=== PATIENT | male | born 1970 | race Caucasian/White ===

== ENCOUNTER 2018-05-06 11:38 | Emergency (ER) | payer MEDICAID, SELFPAY ==
[2018-05-06 11:42] VITALS: BP 126/80; PULSE 80; RESP 16; TEMP 36.7; O2SAT 96
--- NOTE | 2018-05-06 12:18 | W.ED.GENAD ---
Discharge Plan Disposition Patient Disposition: HOME Condition: Stable Discharge Details Chief Complaint: Abd Prob Clinical Impression: Vomiting and diarrhea Primary Care Provider: Young Caban ED Provider: Claudia Taylor Home Meds and New Rx's Prescriptions: Continue sildenafil (antihypertensive) 20 mg tablet 20 mg PO DAILY MDD 5 Qty: 20 RF: 12 spacer 1 unit PO PRN PRNRF: 0 C-PAP RF: 0 albuterol sulfate [ProAir HFA] 8.5 GM HFA aerosol inhaler 2 puff Inhalation Q4H PRN Qty: 1 RF: 5 amlodipine 5 MG tablet 5 mg PO DAILY Qty: 90 RF: 4 PROVENTIL HFA 18 GM HFA.AER.AD 2 puff Inhalation DAILY Qty: 1 RF: 3 metoprolol succinate 50 mg tablet extended release 24 hr 75 mg PO DAILY Qty: 135 RF: 3 dextroamphetamine-amphetamine [Adderall XR] 10 mg capsule,extended release 24hr 10 mg PO QAM Qty: 30 RF: 0 dextroamphetamine-amphetamine [Adderall XR] 30 mg capsule,extended release 24hr 30 mg PO QAM Qty: 30 RF: 0 acetaminophen [Tylenol] 325 MG tablet 650 mg PO Q4H PRN PRNRF: 0 aspirin [Aspir-81] 81 MG tablet,delayed release (DR/EC) 325 mg PO DAILY Qty: 0 RF: 0 No Action losartan 100 mg tablet 100 mg PO DAILY Qty: 90 RF: 3 Discharge Instructions Instructions: Acute Nausea and Vomiting (ED), Acute Diarrhea (ED) Additional Instructions: Please return immediately to the emergency department if you develop any new or worsening symptoms or if you become otherwise concerned. It is extremely important that you make an appointment to be seen by your primary care doctor within the next 1-2 weeks and follow-up this visit. Referrals: Young Caban [Primary Care Provider] - Discharge Data Discharge Date/Time-TO BE ENTERED AT DEPARTURE: 05/06/18 15:09 Medical Decision Making Venu Zapata is a 47 y/o man with h/o HTN, asthma who presented to the emergency department with diarrhea since yesterday, vomiting x2 yesterday, lower abd pain with BMs without current pain. Symptoms improving. Pt very well-appearing on exam with benign abd. Concern for gastroenteritis. Doubt pancreatitis, biliary dz, appy, diverticulitis as no current pain, abd NTTP. Exam/hx not c/w testicular etiology, acute aortic pathology, sepsis, ACS. Plan for screening labs, UA, IVF hydration, PO challenge. Will monitor and reassess. Labs non-diagnostic. Pt passed PO challenge without issue. Imaging not indicated at this time, Pt continues to be pain free. Lengthy discussion with Pt re: RTED precautions and importance of outpt f/u with PCP. He is amenable to the plan. Medical Records Medical records reviewed: Yes I reviewed the patient's medical records. Lab Data Lab results reviewed: Yes I reviewed the patient's lab results. Laboratory Tests Range/Units 05/06/18 05/06/18 05/06/18 12:30 12:30 12:55 WBC (4.4-10.8) k/cumm 7.71 RBC (4.50-6.00) m/cumm 5.26 Hgb (13.5-17.5) g/dL 15.4 Hct (40.0-50.0) % 44.9 MCV (80-95) fL 85.4 MCH (27.0-33.0) pg 29.3 MCHC (32.0-36.0) g/dL 34.3 RDW (11.8-14.1) % 13.8 Plt Count (130-400) x1000/uL 262 MPV (8.0-11.0) fL 8.8 Immature Gran % 0.1 Neutrophils % 69.2 Lymphocytes % 16.3 Monocytes % 11.2 Eosinophils % 3.1 Basophils % 0.1 Absolute Neutrophils (1.2-6.7) k/cumm 5.33 Absolute Lymphocytes (1.2-3.4) k/cumm 1.26 Absolute Monocytes (0.11-0.7) k/cumm 0.86 H Absolute Eosinophils (0.0-0.7) k/cumm 0.24 Absolute Basophils (0.0-0.2) k/cumm 0.01 Sodium (136-145) mmol/L 138 Potassium (3.5-5.1) mmol/L 3.8 Chloride (98-107) mmol/L 104 Carbon Dioxide (21.0-32.0) mmol/L 26.2 Anion Gap (3-11) mmol/L 7.8 BUN (7-18) mg/dL 17 Creatinine (0.70-1.30) mg/dL 1.04 Estimated GFR/1.73 m2 (mL/min/1.73m2) >= 60.00 Glucose (70-100) mg/dL 126 H Calcium (8.5-10.1) mg/dL 8.5 Total Bilirubin (0.2-1.0) mg/dL 0.5 AST (15-37) U/L 14 L ALT (12-78) U/L 27 Alkaline Phosphatase (46-116) U/L 82 Total Protein (6.4-8.2) g/dL 7.6 Albumin (3.4-5.0) g/dL 3.7 Lipase (73-393) U/L 78 Urine Color (Yellow) Yellow Urine Clarity Clear Urine pH (5-8) 5.5 Ur Specific [place] (1.005-1.025) >= 1.030 H Urine Protein (Negative) mg/dL 100 H Urine Ketones (Negative) mg/dL Negative Urine Blood (Negative) Negative Urine Nitrite (Negative) Negative Urine Bilirubin (Negative) Negative Urine Urobilinogen (Up TO 0.2) EU/dL 0.2 Ur Leukocyte Esterase (Negative) Negative Urine RBC (0-2) Negative Urine WBC (0-5) HPF 0-2 Ur Epithelial Cells (Negative) HPF Negative Urine Crystals (Negative) HPF Many amorphous Urine Bacteria (Negative) HPF Negative Urine Casts (Negative) LPF Negative Urine Mucus (Negative) Moderate Ur Culture Indicated? No Urine Glucose (Negative) mg/dL Negative ECG Data Attestation: I personally reviewed and interpreted this ECG (s) as follows: Interpretation: EKG shows NSR at 73 with nl axis, PRWP, no STEMI, non-diagnostic EKG HPI General Mode of arrival: ambulatory. Date/Time Provider Initiated Documentation: 05/06/18 12:18. Limitations to Documentation: no limitations. Information obtained by: patient, family, RN notes reviewed and old records reviewed. HPI Narrative: Venu Zapata is a 47 y/o man with h/o asthma, HTN presenting to the emergency department with abdominal pain, vomiting and diarrhea since yesterday. Pt reports that yesterday morning he develop diarrhea, and then began having lower abdominal pain before BMs that resolves after BM. He reports he currently has no pain. He also developed vomiting yesterday x2. No vomiting today. Pt feeling somewhat improved from yesterday at this time. Denies fever, other pain, SOB, cough, rash, weakness, n/t. No recent illnesses. No recent travel. Previously in his usual state of health. Had been eating and drinking normally. Diarrhea is loose but not watery. No recent abx. Related Data Home Medications Medication Instructions Recorded Confirmed Spacer 1 unit PO PRN PRN 05/02/14 05/04/18 C-Pap 02/04/17 05/04/18 acetaminophen [Tylenol] 650 mg PO Q4H PRN PRN tab 02/23/17 05/06/18 aspirin [Aspir-81] 325 mg PO DAILY #0 tab-cap 02/23/17 05/06/18 albuterol sulfate [ProAir HFA] 2 puff INHALATION Q4H PRN #1 05/07/17 05/06/18 inhaler amlodipine 5 mg PO DAILY #90 tab-cap 10/10/17 05/06/18 metoprolol succinate ER 50 mg 75 mg PO DAILY #135 tab 04/08/18 05/06/18 tablet,extended release 24 hr dextroamphetamine-amphetamine ER 10 mg PO QAM #30 cap 05/04/18 05/06/18 10 mg 24hr capsule,extend release dextroamphetamine-amphetamine ER 30 mg PO QAM #30 cap 05/04/18 05/06/18 30 mg 24hr capsule,extend release sildenafil (antihypertensive) 20 20 mg PO DAILY #20 tab-cap MDD 5 05/04/18 05/06/18 mg tablet losartan 100 mg tablet 100 mg PO DAILY #90 tab-cap 05/15/18 Previous Rx's Medication Instructions Recorded acetaminophen [Tylenol] 650 mg PO Q4H PRN PRN tab 02/23/17 aspirin [Aspir-81] 325 mg PO DAILY #0 tab-cap 02/23/17 albuterol sulfate [ProAir HFA] 2 puff INHALATION Q4H PRN #1 05/07/17 inhaler amlodipine 5 mg PO DAILY #90 tab-cap 10/10/17 metoprolol succinate ER 50 mg 75 mg PO DAILY #135 tab 04/08/18 tablet,extended release 24 hr dextroamphetamine-amphetamine ER 10 mg PO QAM #30 cap 05/04/18 10 mg 24hr capsule,extend release dextroamphetamine-amphetamine ER 30 mg PO QAM #30 cap 05/04/18 30 mg 24hr capsule,extend release sildenafil (antihypertensive) 20 20 mg PO DAILY #20 tab-cap MDD 5 05/04/18 mg tablet losartan 100 mg tablet 100 mg PO DAILY #90 tab-cap 05/15/18 Allergies Allergy/AdvReac Type Severity Reaction Status Date / Time lisinopril AdvReac Unknown cough Unverified 05/06/18 11:47 General Stated Complaint: Abd Prob CATHERINE: 3 Review of Systems Review of Systems Constitutional: denies fevers Eyes: denies eye pain ENT: denies facial pain, dental pain, sore throat Cardiovascular: denies chest pain, edema Respiratory: denies SOB, cough GI: reports abdominal pain, vomiting, diarrhea : denies flank pain MSK: denies back pain, neck pain, arthralgias, myalgias Skin: denies rash Neuro: denies headaches, lightheadedness, weakness PFSH Family History Mother Diabetes Personal history of malignant neoplasm Brother No problems noted. Step father Hyperlipidemia Social History Smoking/Tobacco Use Status: Former Tobacco Use Surgical History Nasal septoplasty Exam Narrative Exam Narrative: Constitutional: well and [id number], pleasant, conversing normally HENT: head atraumatic, normocephalic normal inspection, mucous membranes moist Eyes: conjunctiva normal, sclera normal, pupils 3mm b/l Neck: no stridor, normal ROM, trachea midline Chest: normal inspection Resp: normal work of breathing, LCTAB Cardio: normal rate, normal rhythm, no murmur appreciated GI: abdomen soft, non-tender, non-distended, no McBPt TTP, neg murphys Back: normal inspection, no rash Skin: warm, dry, normal color, no rash Neuro: alert, not altered, grossly non-focal, normal tone Ext: no edema Psych: normal mood, normal affect, normal behavior Course Vital Signs Temperature 36.7 C 05/06/18 11:42 Pulse 80 05/06/18 11:42 Respiratory Rate 16 05/06/18 11:42 Blood Pressure 126/80 05/06/18 11:42 Pulse Oximetry 96 05/06/18 11:42 Temperature 36.7 C 05/06/18 11:42 Temperature Source Skin 05/06/18 11:42 Pulse 80 05/06/18 11:42 Respiratory Rate 16 05/06/18 11:42 Respiratory Effort 05/06/18 11:56 Blood Pressure 126/80 05/06/18 11:42 Blood Pressure Position Sitting 05/06/18 11:42 Pulse Oximetry 96 05/06/18 11:42 Oxygen Delivery Method Room Air 05/06/18 11:42 Oxygen Flow Rate 0 05/06/18 11:42 Pain Level 10 05/06/18 11:42
[2018-05-06 12:49] LABS: Abs Immature Grans 0.01 k/cumm (0.0-0.09); Absolute Basophil Count 0.01 k/cumm (0.0-0.2); Absolute Eosinophil Count 0.24 k/cumm (0.0-0.7); Absolute Lymphocyte Count 1.26 k/cumm (1.2-3.4); Absolute Monocyte Count 0.86 k/cumm (0.11-0.7); Absolute Neutrophil Count 5.33 k/cumm (1.2-6.7); Basophils % 0.1; Eosinophils % 3.1; HCT 44.9 % (40.0-50.0); HGB 15.4 g/dL (13.5-17.5); Immature Grans % 0.1; Lymphocytes % 16.3; Mean Corp. HGB Concentration 34.3 g/dL (32.0-36.0); Mean Corpuscular Hemoglobin 29.3 pg (27.0-33.0); Mean Corpuscular Volume 85.4 fL (80-95); Mean Platelet Volume 8.8 fL (8.0-11.0); Monocytes % 11.2; Neutrophils % 69.2; Platelet Count 262 x1000/uL (130-400); RBC 5.26 m/cumm (4.50-6.00); RBC Distribution Width 13.8 % (11.8-14.1); White Blood Cell Count 7.71 k/cumm (4.4-10.8)
[2018-05-06] MEDS: Normal Saline 1,000 ML 1000 ML IV (12:49)
[2018-05-06 13:07] LABS: Bilirubin Negative (Negative); Blood Negative (Negative); Clarity Clear; Glucose Negative (Negative); Ketones Negative (Negative); Leukocyte Esterase Negative (Negative); Nitrite Negative (Negative); Specific Gravity >= 1.030 (1.005-1.025); Urobilinogen 0.2 EU/dL (Up TO 0.2); pH 5.5 (5-8)
[2018-05-06 13:08] LABS: ALT 27 U/L (12-78); AST 14 U/L (15-37); Albumin 3.7 g/dL (3.4-5.0); Alkaline Phosphatase 82 U/L (46-116); Anion Gap 7.8 mmol/L (3-11); BUN 17 mg/dL (7-18); Bilirubin, Total 0.5 mg/dL (0.2-1.0); CO2 26.2 mmol/L (21.0-32.0); CREATININE 1.04 mg/dL (0.70-1.30); Calcium 8.5 mg/dL (8.5-10.1); Chloride 104 mmol/L (98-107); Glucose 126 mg/dL (70-100); Lipase 78 U/L (73-393); Potassium 3.8 mmol/L (3.5-5.1); Sodium 138 mmol/L (136-145); Total Protein 7.6 g/dL (6.4-8.2)
[2018-05-06 13:18] LABS: WBC 0-2 HPF (0-5)
[2018-05-06 13:19] LABS: Bacteria Negative HPF (Negative); C & S Indicated? No; Casts Negative LPF (Negative); Crystals Many Amorphous HPF (Negative); Epithelial Cells Negative HPF (Negative); Mucus Moderate (Negative); RBC Negative (0-2)
--- NOTE | 2018-05-19 13:26 | ED.GENADUL_ITS ---
Discharge Plan Disposition Patient Disposition: HOME Condition: Stable Discharge Details Chief Complaint: Abd Prob Clinical Impression: Vomiting and diarrhea Primary Care Provider: Young Caban ED Provider: Claudia Taylor Home Meds and New Rx's Prescriptions: Continue sildenafil (antihypertensive) 20 mg tablet 20 mg PO DAILY MDD 5 Qty: 20 RF: 12 spacer 1 unit PO PRN PRNRF: 0 C-PAP RF: 0 albuterol sulfate [ProAir HFA] 8.5 GM HFA aerosol inhaler 2 puff Inhalation Q4H PRN Qty: 1 RF: 5 amlodipine 5 MG tablet 5 mg PO DAILY Qty: 90 RF: 4 PROVENTIL HFA 18 GM HFA.AER.AD 2 puff Inhalation DAILY Qty: 1 RF: 3 metoprolol succinate 50 mg tablet extended release 24 hr 75 mg PO DAILY Qty: 135 RF: 3 dextroamphetamine-amphetamine [Adderall XR] 10 mg capsule,extended release 24hr 10 mg PO QAM Qty: 30 RF: 0 dextroamphetamine-amphetamine [Adderall XR] 30 mg capsule,extended release 24hr 30 mg PO QAM Qty: 30 RF: 0 acetaminophen [Tylenol] 325 MG tablet 650 mg PO Q4H PRN PRNRF: 0 aspirin [Aspir-81] 81 MG tablet,delayed release (DR/EC) 325 mg PO DAILY Qty: 0 RF: 0 No Action losartan 100 mg tablet 100 mg PO DAILY Qty: 90 RF: 3 Discharge Instructions Instructions: Acute Nausea and Vomiting (ED), Acute Diarrhea (ED) Additional Instructions: Please return immediately to the emergency department if you develop any new or worsening symptoms or if you become otherwise concerned. It is extremely important that you make an appointment to be seen by your primary care doctor within the next 1-2 weeks and follow-up this visit. Referrals: Young Caban [Primary Care Provider] - Discharge Data Discharge Date/Time-TO BE ENTERED AT DEPARTURE: 05/06/18 15:09 Medical Decision Making Venu Zapata is a 47 y/o man with h/o HTN, asthma who presented to the emergency department with diarrhea since yesterday, vomiting x2 yesterday, lower abd pain with BMs without current pain. Symptoms improving. Pt very well- appearing on exam with benign abd. Concern for gastroenteritis. Doubt pancreatitis, biliary dz, appy, diverticulitis as no current pain, abd NTTP. Exam/hx not c/w testicular etiology, acute aortic pathology, sepsis, ACS. Plan for screening labs, UA, IVF hydration, PO challenge. Will monitor and reassess. Labs non-diagnostic. Pt passed PO challenge without issue. Imaging not indicated at this time, Pt continues to be pain free. Lengthy discussion with Pt re: RTED precautions and importance of outpt f/u with PCP. He is amenable to the plan. Medical Records Medical records reviewed: Yes I reviewed the patient's medical records. Lab Data Lab results reviewed: Yes I reviewed the patient's lab results. Laboratory Tests Range/Units 05/06/18 05/06/18 05/06/18 12:30 12:30 12:55 WBC (4.4-10.8) k/cumm 7.71 RBC (4.50-6.00) m/cumm 5.26 Hgb (13.5-17.5) g/dL 15.4 Hct (40.0-50.0) % 44.9 MCV (80-95) fL 85.4 MCH (27.0-33.0) pg 29.3 MCHC (32.0-36.0) g/dL 34.3 RDW (11.8-14.1) % 13.8 Plt Count (130-400) x1000/uL 262 MPV (8.0-11.0) fL 8.8 Immature Gran % 0.1 Neutrophils % 69.2 Lymphocytes % 16.3 Monocytes % 11.2 Eosinophils % 3.1 Basophils % 0.1 Absolute Neutrophils (1.2-6.7) k/cumm 5.33 Absolute Lymphocytes (1.2-3.4) k/cumm 1.26 Absolute Monocytes (0.11-0.7) k/cumm 0.86 H Absolute Eosinophils (0.0-0.7) k/cumm 0.24 Absolute Basophils (0.0-0.2) k/cumm 0.01 Sodium (136-145) mmol/L 138 Potassium (3.5-5.1) mmol/L 3.8 Chloride (98-107) mmol/L 104 Carbon Dioxide (21.0-32.0) mmol/L 26.2 Anion Gap (3-11) mmol/L 7.8 BUN (7-18) mg/dL 17 Creatinine (0.70-1.30) mg/dL 1.04 Estimated GFR/1.73 m2 (mL/min/1.73m2) >= 60.00 Glucose (70-100) mg/dL 126 H Calcium (8.5-10.1) mg/dL 8.5 Total Bilirubin (0.2-1.0) mg/dL 0.5 AST (15-37) U/L 14 L ALT (12-78) U/L 27 Alkaline Phosphatase (46-116) U/L 82 Total Protein (6.4-8.2) g/dL 7.6 Albumin (3.4-5.0) g/dL 3.7 Lipase (73-393) U/L 78 Urine Color (Yellow) Yellow Urine Clarity Clear Urine pH (5-8) 5.5 Ur Specific [place] (1.005-1.025) >= 1.030 H Urine Protein (Negative) mg/dL 100 H Urine Ketones (Negative) mg/dL Negative Urine Blood (Negative) Negative Urine Nitrite (Negative) Negative Urine Bilirubin (Negative) Negative Urine Urobilinogen (Up TO 0.2) EU/dL 0.2 Ur Leukocyte Esterase (Negative) Negative Urine RBC (0-2) Negative Urine WBC (0-5) HPF 0-2 Ur Epithelial Cells (Negative) HPF Negative Urine Crystals (Negative) HPF Many amorphous Urine Bacteria (Negative) HPF Negative Urine Casts (Negative) LPF Negative Urine Mucus (Negative) Moderate Ur Culture Indicated? No Urine Glucose (Negative) mg/dL Negative ECG Data Attestation: I personally reviewed and interpreted this ECG (s) as follows: Interpretation: EKG shows NSR at 73 with nl axis, PRWP, no STEMI, non- diagnostic EKG HPI General Mode of arrival: ambulatory . Date/Time Provider Initiated Documentation: 05/06/18 12:18 . Limitations to Documentation: no limitations . Information obtained by: patient, family, RN notes reviewed and old records reviewed . HPI Narrative: Venu Zapata is a 47 y/o man with h/o asthma, HTN presenting to the emergency department with abdominal pain, vomiting and diarrhea since yesterday. Pt reports that yesterday morning he develop diarrhea, and then began having lower abdominal pain before BMs that resolves after BM. He reports he currently has no pain. He also developed vomiting yesterday x2. No vomiting today. Pt feeling somewhat improved from yesterday at this time. Denies fever, other pain, SOB, cough, rash, weakness, n/t. No recent illnesses. No recent travel. Previously in his usual state of health. Had been eating and drinking normally. Diarrhea is loose but not watery. No recent abx. Related Data Home Medications Medication Instructions Recorded Confirmed Spacer 1 unit PO PRN PRN 05/02/14 05/04/18 C-Pap 02/04/17 05/04/18 acetaminophen [Tylenol] 650 mg PO Q4H PRN PRN tab 02/23/17 05/06/18 aspirin [Aspir-81] 325 mg PO DAILY #0 tab-cap 02/23/17 05/06/18 albuterol sulfate [ProAir HFA] 2 puff INHALATION Q4H PRN #1 05/07/17 05/06/18 inhaler amlodipine 5 mg PO DAILY #90 tab-cap 10/10/17 05/06/18 metoprolol succinate ER 50 mg 75 mg PO DAILY #135 tab 04/08/18 05/06/18 tablet,extended release 24 hr dextroamphetamine-amphetamine ER 10 mg PO QAM #30 cap 05/04/18 05/06/18 10 mg 24hr capsule,extend release dextroamphetamine-amphetamine ER 30 mg PO QAM #30 cap 05/04/18 05/06/18 30 mg 24hr capsule,extend release sildenafil (antihypertensive) 20 20 mg PO DAILY #20 tab-cap MDD 5 05/04/1805/06 mg tablet losartan 100 mg tablet 100 mg PO DAILY #90 tab-cap 05/15/18 Previous Rx's Medication Instructions Recorded acetaminophen [Tylenol] 650 mg PO Q4H PRN PRN tab 02/23/17 aspirin [Aspir-81] 325 mg PO DAILY #0 tab-cap 02/23/17 albuterol sulfate [ProAir HFA] 2 puff INHALATION Q4H PRN #1 05/07/17 inhaler amlodipine 5 mg PO DAILY #90 tab-cap 10/10/17 metoprolol succinate ER 50 mg 75 mg PO DAILY #135 tab 04/08/18 tablet,extended release 24 hr dextroamphetamine-amphetamine ER 10 mg PO QAM #30 cap 05/04/18 10 mg 24hr capsule,extend release dextroamphetamine-amphetamine ER 30 mg PO QAM #30 cap 05/04/18 30 mg 24hr capsule,extend release sildenafil (antihypertensive) 20 20 mg PO DAILY #20 tab-cap MDD 5 05/04/18 mg tablet losartan 100 mg tablet 100 mg PO DAILY #90 tab-cap 05/15/18 Allergies Allergy/AdvReac Type Severity Reaction Status Date / Time lisinopril AdvReac Unknown cough Unverified 05/06/18 11:47 General Stated Complaint: Abd Prob CATHERINE: 3 Review of Systems Review of Systems Constitutional: denies fevers Eyes: denies eye pain ENT: denies facial pain, dental pain, sore throat Cardiovascular: denies chest pain, edema Respiratory: denies SOB, cough GI: reports abdominal pain, vomiting, diarrhea : denies flank pain MSK: denies back pain, neck pain, arthralgias, myalgias Skin: denies rash Neuro: denies headaches, lightheadedness, weakness PFSH Family History Mother Diabetes Personal history of malignant neoplasm Brother No problems noted. Step father Hyperlipidemia Social History Smoking/Tobacco Use Status: Former Tobacco Use Surgical History Nasal septoplasty Exam Narrative Exam Narrative: Constitutional: well and [id number], pleasant, conversing normally HENT: head atraumatic, normocephalic normal inspection, mucous membranes moist Eyes: conjunctiva normal, sclera normal, pupils 3mm b/l Neck: no stridor, normal ROM, trachea midline Chest: normal inspection Resp: normal work of breathing, LCTAB Cardio: normal rate, normal rhythm, no murmur appreciated GI: abdomen soft, non-tender, non-distended, no McBPt TTP, neg murphys Back: normal inspection, no rash Skin: warm, dry, normal color, no rash Neuro: alert, not altered, grossly non-focal, normal tone Ext: no edema Psych: normal mood, normal affect, normal behavior Course Vital Signs Temperature 36.7 C 05/06/18 11:42 Pulse 80 05/06/18 11:42 Respiratory Rate 16 05/06/18 11:42 Blood Pressure 126/80 05/06/18 11:42 Pulse Oximetry 96 05/06/18 11:42 Temperature 36.7 C 05/06/18 11:42 Temperature Source Skin 05/06/18 11:42 Pulse 80 05/06/18 11:42 Respiratory Rate 16 05/06/18 11:42 Respiratory Effort 05/06/18 11:56 Blood Pressure 126/80 05/06/18 11:42 Blood Pressure Position Sitting 05/06/18 11:42 Pulse Oximetry 96 05/06/18 11:42 Oxygen Delivery Method Room Air 05/06/18 11:42 Oxygen Flow Rate 0 05/06/18 11:42 Pain Level 10 05/06/18 11:42
== END 2018-05-06 15:09 | disposition home or self-care (01) ==
PROVIDERS: Emergency Provider Student in an Organized Health Care Education/Training Program; PCP Family Medicine
DX: R11.2 Nausea with vomiting, unspecified (principal); R19.7 Diarrhea, unspecified; I10 Essential (primary) hypertension
CPT/HCPCS: 80053; 83690; 96360; 99283; 81003; 81015; 85025

== ENCOUNTER 2018-05-26 10:25 | Outpatient (CLI) | payer MEDICAID, SELFPAY ==
[2018-05-26 13:10] LABS: Hemoglobin A1C 6.3 % (4.5-6.2)
== END 2018-05-26 10:45 ==
PROVIDERS: PCP Family Medicine; Visit Provider Family Medicine
DX: E11.9 Type 2 diabetes mellitus without complications (principal); I10 Essential (primary) hypertension
CPT/HCPCS: 36415; 83036

== ENCOUNTER 2018-08-31 00:37 | Outpatient (CLI) | payer MEDICAID, SELFPAY ==
--- NOTE | 2018-08-31 07:43 | DI.US_ITS ---
SYMPTOM/DIAGNOSIS: RUQ INTERMITTENT PAIN R10.9 ABDOMEN ULTRASOUND: Comparison is made with 20 October 2013. The exam is somewhat limited by the patient's body habitus. The liver is mildly enlarged and shows mild diffuse fatty infiltration. The gallbladder is unremarkable, without evidence of stones or wall thickening. No biliary dilatation is seen. The tail of the pancreas is not visualized. There are no gross inflammatory changes. The kidneys, spleen and aorta are unremarkable. IMPRESSION: Mild fatty infiltration of the liver, otherwise negative.
[2018-08-31 10:04] LABS: Hemoglobin A1C 6.5 % (4.5-6.2)
== END 2018-08-31 00:57 ==
PROVIDERS: PCP Family Medicine; Visit Provider Family Medicine
DX: R10.11 Right upper quadrant pain (principal); K76.0 Fatty (change of) liver, not elsewhere classified; R16.0 Hepatomegaly, not elsewhere classified; E11.9 Type 2 diabetes mellitus without complications
CPT/HCPCS: 36415; 76700; 83036

== ENCOUNTER 2019-02-24 10:54 | Outpatient (CLI) | payer MEDICAID, SELFPAY ==
[2019-02-24 13:22] LABS: Hemoglobin A1C 6.4 % (4.5-6.2)
== END 2019-02-24 11:14 ==
PROVIDERS: PCP Family Medicine; Visit Provider Family Medicine
DX: E11.9 Type 2 diabetes mellitus without complications (principal)
CPT/HCPCS: 36415; 83036

== ENCOUNTER 2019-04-20 09:20 | Outpatient (CLI) | payer MEDICAID, SELFPAY ==
--- NOTE | 2019-04-20 09:10 | DI.RAD_ITS ---
EXAM: XR SHOULDER RT COMPLETE 2+V INDICATION: right shoulder pain. COMPARISON: No exams were available for comparison TECHNIQUE: 2D digital imaging was performed. FINDINGS: The AC joint is intact. There is mild narrowing involving the glenohumeral joint. Articular sclerosis is evident. The findings are consistent with mild DJD.
== END 2019-04-20 09:40 ==
PROVIDERS: PCP Family Medicine; Visit Provider Physician Assistant
DX: M25.511 Pain in right shoulder (principal); M19.011 Primary osteoarthritis, right shoulder
CPT/HCPCS: 73030

== ENCOUNTER 2019-05-13 00:25 | Outpatient (CLI) | payer MEDICAID, SELFPAY ==
--- NOTE | 2019-05-13 07:41 | DI.MRI_ITS ---
EXAM: MR UPPER JOINT RT WO CLINICAL HISTORY: failure of conservative tx, evaluate RC. TECHNIQUE: Multiplanar multisequence MRI was performed. The exam is limited by patient body habitus and poor fat suppression. COMPARISON: RIGHT SHOULDER from 09/28/2014 XR SHOULDER RT COMPLETE 2+V from 04/20/2019 FINDINGS: There is no significant AC joint degenerative changes. There is minimal thickening and intermediat e signal in the supraspinatus tendon consistent with mild tendinosis the infraspinatus, subscapularis and biceps tendons appear intact. Subchondral cysts are seen in the inferior glenoid. No gross lab ral defect is seen although labrum is not well evaluated due to lack of intra-articular contrast and lack of joint effusion. There is mild no muscular atrophy. IMPRESSION: Mild supraspinatus tendinosis. Degenerative changes of the glenohumeral joint with subchondral cyst formation in the inferior glenoid.
== END 2019-05-13 00:45 ==
PROVIDERS: PCP Family Medicine; Visit Provider Student in an Organized Health Care Education/Training Program
DX: M25.511 Pain in right shoulder (principal); M75.21 Bicipital tendinitis, right shoulder; M19.011 Primary osteoarthritis, right shoulder
CPT/HCPCS: 73221

== ENCOUNTER 2019-06-09 00:21 | Outpatient (CLI) | payer OTHER, SELFPAY ==
--- NOTE | 2019-06-09 10:25 | DI.RAD_ITS ---
EXAM: XR LUMBAR SPINE AP, LAT INDICATION: BACK PAIN, DISABILITY DETERMINATION, ID VERIFIED PHOTO ID. COMPARISON: No exams were available for comparison TECHNIQUE: 2D digital imaging was performed. FINDINGS: There is normal alignment of the lumbar spine. Mild degenerative changes are present throughout the lumbar spine. No acute fractures or subluxations are present. IMPRESSION: Mild degenerative changes of the lumbar spine.
== END 2019-06-09 00:41 ==
PROVIDERS: PCP Family Medicine; Visit Provider Pediatrics Pediatric Rheumatology
DX: M54.5 Low back pain (principal); M47.816 Spondylosis without myelopathy or radiculopathy, lumbar region; Z02.71 Encounter for disability determination
CPT/HCPCS: 72100

== ENCOUNTER 2019-08-30 07:01 | Outpatient (CLI) | payer MEDICAID, SELFPAY ==
[2019-08-30 09:42] LABS: Hemoglobin A1C 6.5 % (3.8-5.6)
[2019-08-30 09:44] LABS: CREATININE 1.01 mg/dL (0.70-1.30); Calculated LDL 152 mg/dL (<100); Cholesterol 240 mg/dL (<200); HDL Cholesterol 40 mg/dL (40-60); Potassium 4.4 mmol/L (3.5-5.1); Triglyceride 244 mg/dL (<150)
== END 2019-08-30 07:21 ==
PROVIDERS: PCP Family Medicine; Visit Provider Family Medicine
DX: I10 Essential (primary) hypertension (principal); E78.5 Hyperlipidemia, unspecified; R73.9 Hyperglycemia, unspecified
CPT/HCPCS: 36415; 80061; 82565; 83036; 84132

== ENCOUNTER 2019-12-20 11:20 | Emergency (ER) | payer MEDICAID, SELFPAY ==
[2019-12-20] VITALS (7 sets, daily range): BP systolic 145–170; BP diastolic 69–98; PULSE 74–83; RESP 16–20; TEMP 36.8–37.1; O2SAT 94–97
--- NOTE | 2019-12-20 11:28 | NUR.NOTE ---
pt unsure of medications pcp at [facility] Note:
--- NOTE | 2019-12-20 11:29 | ED.GENADUL_ITS ---
Discharge Plan Disposition Patient Disposition: HOME Condition: Stable Discharge Details Chief Complaint: Abd Prob Clinical Impression: Diverticulitis Primary Care Provider: Young Caban ED Provider: Claudia Taylor Home Meds and New Rx's Prescriptions: New metronidazole [Flagyl] 500 mg tablet 500 mg PO TID Qty: 29 RF: 0 levofloxacin [Levaquin] 750 mg tablet 750 mg PO DAILY Qty: 9 RF: 0 Continued terbinafine HCl 250 mg tablet 250 mg PO DAILY Qty: 28 RF: 0 terbinafine HCl 250 mg tablet 250 mg PO DAILY Qty: 30 RF: 0 amlodipine 5 mg tablet 5 mg PO DAILY Qty: 90 RF: 4 metoprolol succinate 50 mg tablet extended release 24 hr 75 mg PO DAILY Qty: 135 RF: 3 spacer 1 unit PO PRN PRNRF: 0 PROVENTIL HFA 18 GM HFA.AER.AD 2 puff Inhalation DAILY Qty: 1 RF: 3 ibuprofen 600 mg tablet 600 mg PO TID PRN (Reason: pain) Qty: 90 RF: 1 albuterol sulfate [ProAir HFA] 90 mcg/actuation HFA aerosol inhaler 2 puff Inhalation Q4H PRN Qty: 1 RF: 5 losartan 100 mg tablet 100 mg PO DAILY Qty: 90 RF: 3 atorvastatin 20 mg tablet 20 mg PO QPM Qty: 90 RF: 3 sildenafil [Viagra] 25 mg tablet 25 mg PO DAILY PRN (Reason: sexual activity) Qty: 30 RF: 5 dextroamphetamine-amphetamine [Adderall XR] 10 mg capsule,extended release 24hr 10 mg PO QAM MDD 40 mg Qty: 30 RF: 0 dextroamphetamine-amphetamine [Adderall XR] 30 mg capsule,extended release 24hr 30 mg PO QAM MDD 40 mg Qty: 30 RF: 0 acetaminophen [Tylenol] 325 MG tablet 650 mg PO Q4H PRN PRNRF: 0 aspirin [Aspir-81] 81 MG tablet,delayed release (DR/EC) 325 mg PO DAILY Qty: 0 RF: 0 Discharge Instructions Instructions: Diverticulitis (ED), Diverticulitis Diet (ED) Additional Instructions: Please return immediately to the emergency department if you develop any new or worsening symptoms, if your condition does not improve as expected, or if you become otherwise concerned. It is extremely important that you call soon as possible to make an appointment to be seen in follow-up for this visit by your primary care doctor. Referrals: Young Caban [Primary Care Provider] - Discharge Data Discharge Date/Time-TO BE ENTERED AT DEPARTURE: 12/20/19 14:15 Medical Decision Making Venu Zapata is a 49-year-old man with a history of diabetes, hypertension, acute coronary syndrome who presented to the emergency department with lower middle and right abdominal pain that began yesterday morning, accompanied by constipation and somewhat relieved by small bowel movement this a.m. On exam patient is well and nontoxic-appearing. He appears comfortable. Abdominal tenderness palpation lower middle/suprapubic area and right lower quadrant. No rebound or guarding. Concern for appendicitis, diverticulitis, UTI, other. Exam/history is not consistent with sepsis, testicular pathology, acute aortic etiology, mesenteric ischemia, other vascular emergency. Do not suspect cardiac etiology, however will obtain EKG. Plan for screening labs, CT abdomen/pelvis, IV fluid hydration. Patient declined pain medication at this time. Labs reviewed, nondiagnostic. CT shows diverticulitis. I discussed results with the patient, and discussed plan for outpatient treatment versus inpatient for pain control. Patient repeats that he feels quite comfortable without pain medication and would like to go home. At this time risk/benefit of inpatient admission given patient's level of comfort and CT with diverticulitis without complication favors outpatient therapy. Plan for Levaquin/Flagyl. I had a lengthy discussion with Patient regarding return to emergency department precautions, home care, and importance of outpatient follow-up. Pt verbalizes understanding of the plan and is amenable. Patient discharged to home with clear plan for outpatient follow-up. All questions were answered. Disposition decision was made weighing the risks and benefits of hospitalization versus outpatient treatment, the risk for further decompensation, and the patient's wishes. Medical Records Medical records reviewed: Yes I reviewed the patient's medical records. Imaging Data Radiologic Study: Attestation: I personally reviewed and interpreted this imaging study as follows: Radiologist's impression: EXAM: CT ABDOMEN PELVIS W CLINICAL HISTORY: lower abd pain, worse middle and right. TECHNIQUE: Imaging Protocol: Axial computed tomography images with coronal and sagittal reformatted images were created and reviewed CONTRAST MATERIAL: Intravenous: Omnipaque 350 Contrast volume:122 ml Oral: no COMPARISON: No exams were available for comparison FINDINGS: ABDOMEN: Lung Bases: Normal where visualized. Liver: Enlarged. Moderate fatty infiltration.. No measurable mass. Gallbladder and biliary tract: No radiodense calculus or dilation. Pancreas: Normal density, no abnormal calcifications or inflammatory process. Spleen: Normal. Kidneys: Normal size, contour and axis. No radiodense stones or obstructive uropathy. No masses seen. Adrenal glands: No masses seen. Abdominal Aorta: Abdominal portion non-dilated. PELVIS: Bladder: Symmetric distention, no gross wall thickening. Bowel: Inflammation and wall thickening in the sigmoid colon where there are numerous diverticula. Findings are consistent with diverticulitis. No obstruction. Normal appendix. Peritoneal cavity: No ascites, or abscess. Bones: Within normal limits. Reproductive organs: Within normal limits. Lymph nodes: Unremarkable. Impression: Acute sigmoid diverticulitis. No evidence of perforation or abscess.. Lab Data Lab results reviewed: Yes I reviewed the patient's lab results. Labs: Laboratory Tests Range/Units 12/20/19 12/20/19 12/20/19 11:29 11:29 12:05 WBC (4.4-10.8) k/cumm 7.78 RBC (4.50-6.00) m/cumm 5.17 Hgb (13.5-17.5) g/dL 15.2 Hct (40.0-50.0) % 44.3 MCV (80-95) fL 85.7 MCH (27.0-33.0) pg 29.4 MCHC (32.0-36.0) g/dL 34.3 RDW (11.8-14.1) % 13.6 Plt Count (130-400) x1000/uL 246 MPV (8.0-11.0) fL 9.0 Immature Gran % % 0.4 Neutrophils % 63.3 Lymphocytes % 23.3 Monocytes % 11.2 Eosinophils % 1.7 Basophils % 0.1 Absolute Neutrophils (1.2-6.7) k/cumm 4.93 Absolute Lymphocytes (1.2-3.4) k/cumm 1.81 Absolute Monocytes (0.11-0.7) k/cumm 0.87 H Absolute Eosinophils (0.0-0.7) k/cumm 0.13 Absolute Basophils (0.0-0.2) k/cumm 0.01 Sodium Cancelled 134 L Potassium Cancelled 3.8 Chloride Cancelled 100 Carbon Dioxide Cancelled 29.1 Anion Gap Cancelled 4.9 BUN Cancelled 11 Creatinine Cancelled 1.11 Estimated GFR/1.73 m2 Cancelled >= 60.00 Glucose Cancelled 143 H Calcium Cancelled 8.7 Total Bilirubin Cancelled 0.7 AST Cancelled 11 L ALT Cancelled 23 Alkaline Phosphatase Cancelled 77 Total Protein Cancelled 7.2 Albumin Cancelled 3.4 Lipase Cancelled 64 Urine Color (Yellow) Urine Clarity (Clear) Urine pH (5-8) Ur Specific [place] (1.005-1.025) Urine Protein (Negative) mg/dL Urine Ketones (Negative) mg/dL Urine Blood (Negative) Urine Nitrite (Negative) Urine Bilirubin (Negative) Urine Urobilinogen (Up TO 0.2) EU/dL Ur Leukocyte Esterase (Negative) Urine RBC (0-2) HPF Urine WBC (0-5) HPF Ur Epithelial Cells (Negative) HPF Urine Crystals (Negative) HPF Urine Bacteria (Negative) HPF Urine Casts (Negative) LPF Urine Mucus (Negative) Ur Culture Indicated? Urine Glucose (Negative) mg/dL Range/Units 12/20/19 12:08 WBC (4.4-10.8) k/cumm RBC (4.50-6.00) m/cumm Hgb (13.5-17.5) g/dL Hct (40.0-50.0) % MCV (80-95) fL MCH (27.0-33.0) pg MCHC (32.0-36.0) g/dL RDW (11.8-14.1) % Plt Count (130-400) x1000/uL MPV (8.0-11.0) fL Immature Gran % % Neutrophils % Lymphocytes % Monocytes % Eosinophils % Basophils % Absolute Neutrophils (1.2-6.7) k/cumm Absolute Lymphocytes (1.2-3.4) k/cumm Absolute Monocytes (0.11-0.7) k/cumm Absolute Eosinophils (0.0-0.7) k/cumm Absolute Basophils (0.0-0.2) k/cumm Sodium Potassium Chloride Carbon Dioxide Anion Gap BUN Creatinine Estimated GFR/1.73 m2 Glucose Calcium Total Bilirubin AST ALT Alkaline Phosphatase Total Protein Albumin Lipase Urine Color (Yellow) Yellow Urine Clarity (Clear) Clear Urine pH (5-8) 5.5 Ur Specific [place] (1.005-1.025) >= 1.030 H Urine Protein (Negative) mg/dL 100 H Urine Ketones (Negative) mg/dL Negative Urine Blood (Negative) Negative Urine Nitrite (Negative) Negative Urine Bilirubin (Negative) Negative Urine Urobilinogen (Up TO 0.2) EU/dL 0.2 Ur Leukocyte Esterase (Negative) Negative Urine RBC (0-2) HPF Negative Urine WBC (0-5) HPF 0-2 Ur Epithelial Cells (Negative) HPF Rare Urine Crystals (Negative) HPF Negative Urine Bacteria (Negative) HPF Rare Urine Casts (Negative) LPF 0-2 hyaline Urine Mucus (Negative) Moderate Ur Culture Indicated? No Urine Glucose (Negative) mg/dL Negative ECG Data Attestation: I personally reviewed and interpreted this ECG (s) as follows: Interpretation: EKG shows sinus rhythm at 77, normal axis, no acute ischemic changes, no STEMI, nondiagnostic EKG HPI General Mode of arrival: ambulatory . Date/Time Provider Initiated Documentation: 12/20/19 11:24 . Limitations to Documentation: no limitations . Information obtained by: patient, RN notes reviewed and old records reviewed . HPI Narrative: Venu Zapata is a 49-year-old man with a history of diabetes, hypertension, acute coronary syndrome presenting to the emergency department with abdominal pain. Patient reports that yesterday morning he developed pain in his middle and right lower abdomen. Patient reports that he also developed a sensation of constipation around the same time as the pain. Patient reports the pain has persisted and today, and is worse with change in position or palpation. Patient states that he did have very small bowel movement this morning which is atypical for him, and had some relief of pain but pain did not resolve. Patient reports that he has had no other pain including no testicular pain, no vomiting, no diarrhea, no fever, no numbness, no focal weakness, no rash, no dysuria. Has felt otherwise well in his usual state of health and has continued to eat normally since onset of pain. 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 Patient states he has never had similar symptoms in the past. Denies a history of constipation. Patient reports that he has no history of abdominal surgery. Related Data Home Medications Medication Instructions Recorded Confirmed Spacer 1 unit PO PRN PRN 10/06/14 05/25/20 acetaminophen [Tylenol] 650 mg PO Q4H PRN PRN tab 02/23/17 12/20/19 aspirin [Aspir-81] 325 mg PO DAILY #0 tab-cap 02/23/17 12/20/19 ibuprofen 600 mg tablet 600 mg PO TID PRN #90 tab 12/30/18 12/20/19 albuterol sulfate 90 mcg/actuation 2 puff INHALATION Q4H PRN #1 04/21/1912/19 aerosol inhaler inhaler losartan 100 mg tablet 100 mg PO DAILY #90 tab-cap 06/28/19 12/20/19 amlodipine 5 mg tablet 5 mg PO DAILY #90 tab-cap 08/27/19 12/20/19 metoprolol succinate 50 mg 75 mg PO DAILY #135 tab 08/27/19 12/20/19 tablet,extended release 24 hr terbinafine HCl 250 mg tablet 250 mg PO DAILY #28 tab 08/27/19 12/20/19 terbinafine HCl 250 mg tablet 250 mg PO DAILY #30 tab 08/27/19 12/20/19 atorvastatin 20 mg tablet 20 mg PO QPM #90 tab 09/03/19 12/20/19 sildenafil 25 mg tablet 25 mg PO DAILY PRN #30 tab 09/14/19 12/20/19 dextroamphetamine-amphetamine ER 10 mg PO QAM #30 cap MDD 40 mg 11/30/19 12/20/19 10 mg 24hr capsule,extend release dextroamphetamine-amphetamine ER 30 mg PO QAM #30 cap MDD 40 mg 11/30/19 12/20/19 30 mg 24hr capsule,extend release levofloxacin [Levaquin] 750 mg PO DAILY #9 tab 12/20/19 metronidazole [Flagyl] 500 mg PO TID #29 tab 12/20/19 Previous Rx's Medication Instructions Recorded acetaminophen [Tylenol] 650 mg PO Q4H PRN PRN tab 02/23/17 aspirin [Aspir-81] 325 mg PO DAILY #0 tab-cap 02/23/17 ibuprofen 600 mg tablet 600 mg PO TID PRN #90 tab 12/30/18 albuterol sulfate 90 mcg/actuation 2 puff INHALATION Q4H PRN #1 04/21/19 aerosol inhaler inhaler losartan 100 mg tablet 100 mg PO DAILY #90 tab-cap 06/28/19 amlodipine 5 mg tablet 5 mg PO DAILY #90 tab-cap 08/27/19 metoprolol succinate 50 mg 75 mg PO DAILY #135 tab 08/27/19 tablet,extended release 24 hr terbinafine HCl 250 mg tablet 250 mg PO DAILY #28 tab 08/27/19 terbinafine HCl 250 mg tablet 250 mg PO DAILY #30 tab 08/27/19 atorvastatin 20 mg tablet 20 mg PO QPM #90 tab 09/03/19 sildenafil 25 mg tablet 25 mg PO DAILY PRN #30 tab 09/14/19 dextroamphetamine-amphetamine ER 10 mg PO QAM #30 cap MDD 40 mg 11/30/19 10 mg 24hr capsule,extend release dextroamphetamine-amphetamine ER 30 mg PO QAM #30 cap MDD 40 mg 11/30/19 30 mg 24hr capsule,extend release levofloxacin [Levaquin] 750 mg PO DAILY #9 tab 12/20/19 metronidazole [Flagyl] 500 mg PO TID #29 tab 12/20/19 Allergies Allergy/AdvReac Type Severity Reaction Status Date / Time lisinopril AdvReac Unknown cough Verified 12/20/19 11:27 General Stated Complaint: Abd Prob CATHERINE: 3 Review of Systems Narrative: Constitutional: denies fevers Eyes: denies eye pain ENT: denies ear pain, dental pain, sore throat Cardiovascular: denies chest pain Respiratory: denies SOB, cough GI: denies vomiting, diarrhea, reports abdominal pain, constipation : denies flank pain MSK: denies back pain, neck pain, arthralgias, myalgias Skin: denies rash Neuro: denies headaches, numbness, weakness [facility] Medical History Bursitis of right shoulder (Inactive) Impingement syndrome of right shoulder (Inactive) Rotator cuff tear, right (Inactive) Tendonitis of long head of biceps brachii of right shoulder (Inactive) Tinea pedis (Acute) Surgical History Nasal septoplasty RECONSTRUCTION OF NASAL PASSAGES AND NOSE @ [facility] Social History Smoking/Tobacco Use Status: Former Tobacco Use Alcohol Intake: current Alcohol Intake frequency: a few times a month Alcohol type: beer Drug use: Daily Substance use type: marijuana Current gender identity: male Duration: decline to answer Frequency: 5-6 times per week Pat/Rastafarian: No preference Special pat needs: No Seatbelt use: always Helmet use: Yes Do you feel safe at home: Yes Do you feel safe in your relationship?: Yes Exam Narrative Exam Narrative: Constitutional: well and [id number], pleasant, conversing normally HENT: head atraumatic/normocephalic/normal inspection, mucous membranes moist Eyes: conjunctiva normal, sclera normal, pupils 3mm b/l Neck: no stridor, normal ROM, trachea midline Resp: normal work of breathing, LCTAB Cardio: normal rate, normal rhythm, no murmur appreciated GI: abdomen soft, non-distended, middle lower abdomen/suprapubic area tender to palpation, right lower quadrant tender to palpation, no other tenderness, no rebound, no guarding, negative Turpin sign. Skin: warm, dry, normal color, no rash Neuro: alert, not altered, grossly non-focal, normal tone Ext: no edema, moving all extremities equally Psych: normal mood, normal affect, normal behavior Course Vital Signs Vital signs: Vital Signs Temperature 37.1 C 12/20/19 11:23 Pulse 83 12/20/19 11:23 Respiratory Rate 16 12/20/19 11:23 Pulse Oximetry 97 12/20/19 11:23 Temperature 37.1 C 12/20/19 11:23 Temperature Source Skin 12/20/19 11:23 Pulse 83 12/20/19 11:23 Respiratory Rate 16 12/20/19 11:23 Blood Pressure Position Sitting 12/20/19 11:23 Pulse Oximetry 97 12/20/19 11:23 Oxygen Delivery Method Room Air 12/20/19 11:23 Oxygen Flow Rate 0 12/20/19 11:23 Pain Level 0 12/20/19 11:23
[2019-12-20] MEDS: Normal Saline 1,000 ML 1000 ML IV (11:47)
[2019-12-20 11:53] LABS: Abs Immature Grans 0.03 k/cumm (0.0-0.09); Absolute Basophil Count 0.01 k/cumm (0.0-0.2); Absolute Eosinophil Count 0.13 k/cumm (0.0-0.7); Absolute Lymphocyte Count 1.81 k/cumm (1.2-3.4); Absolute Monocyte Count 0.87 k/cumm (0.11-0.7); Absolute Neutrophil Count 4.93 k/cumm (1.2-6.7); Basophils % 0.1; Eosinophils % 1.7; HCT 44.3 % (40.0-50.0); HGB 15.2 g/dL (13.5-17.5); Immature Grans % 0.4 %; Lymphocytes % 23.3; Mean Corp. HGB Concentration 34.3 g/dL (32.0-36.0); Mean Corpuscular Hemoglobin 29.4 pg (27.0-33.0); Mean Corpuscular Volume 85.7 fL (80-95); Monocytes % 11.2; Neutrophils % 63.3; Platelet Count 246 x1000/uL (130-400); RBC 5.17 m/cumm (4.50-6.00); RBC Distribution Width 13.6 % (11.8-14.1); White Blood Cell Count 7.78 k/cumm (4.4-10.8)
[2019-12-20 12:14] LABS: Bilirubin Negative (Negative); Blood Negative (Negative); Clarity Clear (Clear); Glucose Negative (Negative); Ketones Negative (Negative); Leukocyte Esterase Negative (Negative); Nitrite Negative (Negative); Specific Gravity >= 1.030 (1.005-1.025); Urobilinogen 0.2 EU/dL (Up TO 0.2); pH 5.5 (5-8)
[2019-12-20 12:22] LABS: ALT 23 U/L (16-63); AST 11 U/L (15-37); Albumin 3.4 g/dL (3.4-5.0); Alkaline Phosphatase 77 U/L (46-116); Anion Gap 4.9 mmol/L (3-11); BUN 11 mg/dL (7-18); Bilirubin, Total 0.7 mg/dL (0.2-1.0); CO2 29.1 mmol/L (21.0-32.0); CREATININE 1.11 mg/dL (0.70-1.30); Calcium 8.7 mg/dL (8.5-10.1); Chloride 100 mmol/L (98-107); Glucose 143 mg/dL (74-106); Lipase 64 U/L (73-393); Potassium 3.8 mmol/L (3.5-5.1); Sodium 134 mmol/L (136-145); Total Protein 7.2 g/dL (6.4-8.2)
[2019-12-20 12:24] LABS: WBC 0-2 HPF (0-5)
[2019-12-20 12:25] LABS: Bacteria Rare HPF (Negative); C & S Indicated? No; Casts 0-2 Hyaline LPF (Negative); Crystals Negative HPF (Negative); Epithelial Cells Rare HPF (Negative); Mucus Moderate (Negative); RBC Negative HPF (0-2)
--- NOTE | 2019-12-20 12:45 | DI.CT_ITS ---
EXAM: CT ABDOMEN PELVIS W CLINICAL HISTORY: lower abd pain, worse middle and right. TECHNIQUE: Imaging Protocol: Axial computed tomography images with coronal and sagittal reformatted images were created and reviewed CONTRAST MATERIAL: Intravenous: Omnipaque 350 Contrast volume:122 ml Oral: no COMPARISON: No exams were available for comparison FINDINGS: ABDOMEN: Lung Bases: Normal where visualized. Liver: Enlarged. Moderate fatty infiltration.. No measurable mass. Gallbladder and biliary tract: No radiodense calculus or dilation. Pancreas: Normal density, no abnormal calcifications or inflammatory process. Spleen: Normal. Kidneys: Normal size, contour and axis. No radiodense stones or obstructive uropathy. No masses seen. Adrenal glands: No masses seen. Abdominal Aorta: Abdominal portion non-dilated. PELVIS: Bladder: Symmetric distention, no gross wall thickening. Bowel: Inflammation and wall thickening in the sigmoid colon where there are numerous diverticula. F indings are consistent with diverticulitis. No obstruction. Normal appendix. Peritoneal cavity: No ascites, or abscess. Bones: Within normal limits. Reproductive organs: Within normal limits. Lymph nodes: Unremarkable. Impression: Acute sigmoid diverticulitis. No evidence of perforation or abscess.. RADIATION DOSE DELIVERED: 1,519.01mGy.cm Total DLP DATA REPOSITORY: All CT scans at this facility are submitted to the National Radiology Data Registry (NRDR) Dose Index Registry (DIR) with the [employer] ([employer]). RADIATION OPTIMIZATION: All CT scans at this facility use at least one of these dose optimization te chniques: automated exposure control; mA and/or kV adjustment per patient size (includes targeted exa ms where dose is matched to clinical indication); or iterative reconstruction.
[2019-12-20] MEDS: Omnipaque 350 MG/ML 50 ML BTL IJ (12:57)
[2019-12-20] MEDS: Omnipaque 350 MG/ML 100 ML BTL IJ (12:57)
[2019-12-20] MEDS: Normal Saline - Diluent 50 ML VIAL IV (12:58)
--- NOTE | 2019-12-20 13:17 | DI.VRAD_ITS ---
PROCEDURE INFORMATION: Exam: CT Abdomen And Pelvis With Contrast Exam date and time: 12/20/2019 11:50 AM Age: 49 years old Clinical indication: Abdominal pain; Patient HX: Lower abdomen pain, worse middle and right TECHNIQUE: Imaging protocol: Computed tomography of the abdomen and pelvis with intravenous contrast. Radiation optimization: All CT scans at this facility use at least one of these dose optimization techniques: automated exposure control; mA and/or kV adjustment per patient size (includes targeted exams where dose is matched to clinical indication); or iterative reconstruction. Contrast material: OMNI-PAQUE 350; Contrast volume: 122 ml; Contrast route: IV; COMPARISON: No relevant prior studies available. FINDINGS: Liver: Normal. No mass. Gallbladder and bile ducts: Normal. No calcified stones. No ductal dilation. Pancreas: Normal. No ductal dilation. Spleen: Normal. No splenomegaly. Adrenals: Normal. No mass. Kidneys and ureters: Normal. No hydronephrosis. Stomach and bowel: Diverticulosis and Bowel wall thickening along the rectosigmoid colon. Mild pericolonic inflammatory changes. No evidence of perforation or abscess formation or bleeding. Findings consistent with acute diverticulitis. Appendix: Normal appendix Intraperitoneal space: Mild amount of free fluid in the pelvis Vasculature: Unremarkable. No abdominal aortic aneurysm. Lymph nodes: Unremarkable. No enlarged lymph nodes. Bladder: Unremarkable as visualized. Reproductive: Unremarkable as visualized. Bones/joints: Unremarkable. No acute fracture. Soft tissues: Umbilical hernia contains fat IMPRESSION: Diverticulosis and Bowel wall thickening along the rectosigmoid colon. Mild pericolonic inflammatory changes. No evidence of perforation or abscess formation or bleeding. Findings consistent with acute diverticulitis. Dictated and Authenticated by: Silvia Bean MD. Ordering:LEATHA Taylor MD
[2019-12-20] MEDS: metroNIDAZOLE 500 MG TAB PO (13:53)
[2019-12-20] MEDS: levoFLOXacin 500 MG, levoFLOXacin 250 MG 750 MG PO (13:53)
--- NOTE | 2019-12-20 14:18 | NUR.NOTE ---
Nursing Note: Referral faxed to PCP for follow up. Liseth Vidales
== END 2019-12-20 14:15 | disposition home or self-care (01) ==
PROVIDERS: Emergency Provider Student in an Organized Health Care Education/Training Program; PCP Family Medicine
DX: K57.32 Diverticulitis of large intestine without perforation or abscess without bleeding (principal); I24.9 Acute ischemic heart disease, unspecified; I10 Essential (primary) hypertension; E11.9 Type 2 diabetes mellitus without complications
CPT/HCPCS: 36415; 80053; 83690; 93005; 96360; 96361; 99285; 74177; 81003; 81015; 85025; 93010; J3490; Q9967

== ENCOUNTER 2020-03-19 15:42 | Emergency (ER) | payer MEDICAID, SELFPAY ==
[2020-03-19 15:58] VITALS: BP 170/91; PULSE 90; RESP 16; TEMP 36.7; O2SAT 97
--- NOTE | 2020-03-19 16:15 | DI.RAD_ITS ---
EXAM: XR FOREARM RT CLINICAL HISTORY: freezer hit distal R forearm, r/o fx TECHNIQUE: COMPARISON: No exams were available for comparison FINDINGS: Two views were obtained. No fracture is seen. IMPRESSION: RADIATION DOSE DELIVERED: Total DLP
[2020-03-19] MEDS: Ibuprofen 600 MG TAB PO (16:27)
--- NOTE | 2020-03-19 16:46 | W.ED.GENAD ---
Discharge Plan Disposition Patient Disposition: HOME Condition: Stable Discharge Details Chief Complaint: Orthopedic Clinical Impression: Contusion of forearm, right Primary Care Provider: Young Caban ED Provider: Sonya Greco Home Meds and New Rx's Prescriptions: Continued amlodipine 5 mg tablet 5 mg PO DAILY Qty: 90 RF: 4 metoprolol succinate 50 mg tablet extended release 24 hr 75 mg PO DAILY Qty: 135 RF: 3 dextroamphetamine-amphetamine [Adderall XR] 30 mg capsule,extended release 24hr 30 mg PO QAM MDD 40 mg Qty: 30 RF: 0 ibuprofen 600 mg tablet 600 mg PO TID PRN (Reason: pain) Qty: 90 RF: 1 terbinafine HCl 250 mg tablet 250 mg PO DAILY Qty: 30 RF: 0 PROVENTIL HFA 18 GM HFA.AER.AD 2 puff Inhalation DAILY Qty: 1 RF: 3 albuterol sulfate [ProAir HFA] 90 mcg/actuation HFA aerosol inhaler 2 puff Inhalation Q4H PRN Qty: 1 RF: 5 losartan 100 mg tablet 100 mg PO DAILY Qty: 90 RF: 3 atorvastatin 20 mg tablet 20 mg PO QPM Qty: 90 RF: 3 sildenafil [Viagra] 25 mg tablet 25 mg PO DAILY PRN (Reason: sexual activity) Qty: 30 RF: 5 aspirin [Aspir-81] 81 MG tablet,delayed release (DR/EC) 325 mg PO DAILY Qty: 0 RF: 0 dextroamphetamine-amphetamine [Adderall XR] 10 mg capsule,extended release 24hr 10 mg PO QPM MDD 40 mg RF: 0 Discharge Instructions Instructions: Contusion in Adults (ED) Additional Instructions: Rest, ice, and elevate the affected area as much as possible. Alternate tylenol and motrin as needed and directed for pain. Follow up with your primary care doctor in 1 week as needed. Return to the emergency department with any worsening or new concerning symptoms. Discharge Data Discharge Physician: Sonya Greco Medical Decision Making 49-year-old male presents with right forearm pain after a heavy freezer dropped on his forearm today. He has edema and ecchymosis and tenderness palpation right distal dorsal forearm. Neurovascular intact. No right snuffbox tenderness. Neurovascular intact. Patient referred for forearm x-ray which is negative. He was given a dose of ibuprofen. His right forearm was placed in an Jaguar wrap. Advised to follow up with the primary care doctor for re-evaluation as needed. Usual and customary return precautions given prior to discharge. HPI General Mode of arrival: ambulatory. Date/Time Provider Initiated Documentation: 03/19/20 16:02. Limitations to Documentation: no limitations. Information obtained by: patient. HPI Narrative: Pt is a 49yo M who presents to the ED w/ a c/o R forearm pain and swelling after a freezer dropped on his forearm today. Patient denies any shoulder, elbow or wrist pain. He has not taken a medication for pain. Related Data Home Medications Medication Instructions Recorded Confirmed aspirin [Aspir-81] 325 mg PO DAILY #0 tab-cap 02/23/17 03/19/20 albuterol sulfate 90 mcg/actuation 2 puff INHALATION Q4H PRN #1 04/21/19 03/19/20 aerosol inhaler inhaler losartan 100 mg tablet 100 mg PO DAILY #90 tab-cap 06/28/19 03/19/20 amlodipine 5 mg tablet 5 mg PO DAILY #90 tab-cap 08/27/19 03/19/20 metoprolol succinate 50 mg 75 mg PO DAILY #135 tab 08/27/19 03/19/20 tablet,extended release 24 hr atorvastatin 20 mg tablet 20 mg PO QPM #90 tab 09/03/19 03/19/20 sildenafil 25 mg tablet 25 mg PO DAILY PRN #30 tab 09/14/19 03/19/20 dextroamphetamine-amphetamine ER 30 mg PO QAM #30 cap MDD 40 mg 02/25/20 03/19/20 30 mg 24hr capsule,extend release ibuprofen 600 mg tablet 600 mg PO TID PRN #90 tab 02/25/20 03/19/20 terbinafine HCl 250 mg tablet 250 mg PO DAILY #30 tab 02/25/20 03/19/20 dextroamphetamine-amphetamine 10 mg PO QPM MDD 40 mg 03/19/20 03/19/20 [Adderall XR] Previous Rx's Medication Instructions Recorded aspirin [Aspir-81] 325 mg PO DAILY #0 tab-cap 02/23/17 albuterol sulfate 90 mcg/actuation 2 puff INHALATION Q4H PRN #1 04/21/19 aerosol inhaler inhaler losartan 100 mg tablet 100 mg PO DAILY #90 tab-cap 06/28/19 amlodipine 5 mg tablet 5 mg PO DAILY #90 tab-cap 08/27/19 metoprolol succinate 50 mg 75 mg PO DAILY #135 tab 08/27/19 tablet,extended release 24 hr atorvastatin 20 mg tablet 20 mg PO QPM #90 tab 09/03/19 sildenafil 25 mg tablet 25 mg PO DAILY PRN #30 tab 09/14/19 dextroamphetamine-amphetamine ER 30 mg PO QAM #30 cap MDD 40 mg 02/25/20 30 mg 24hr capsule,extend release ibuprofen 600 mg tablet 600 mg PO TID PRN #90 tab 02/25/20 terbinafine HCl 250 mg tablet 250 mg PO DAILY #30 tab 02/25/20 Allergies Allergy/AdvReac Type Severity Reaction Status Date / Time lisinopril AdvReac Unknown cough Verified 03/19/20 16:01 General Stated Complaint: Orthopedic CATHERINE: 4 Review of Systems All systems reviewed & are unremarkable except as noted in HPI and below Constitutional Constitutional: Reports as per HPI, Denies chills and Denies fever(s) Eyes Eyes: Denies blurry vision ENT Ears, Nose, Mouth, and Throat: Denies dizziness, Denies sore throat and Denies throat swelling Cardiovascular Cardiovascular: Denies chest pain and Denies dyspnea Respiratory Respiratory: Denies cough and Denies dyspnea Gastrointestinal Gastrointestinal: Denies abdominal pain, Denies diarrhea and Denies vomiting Genitourinary Genitourinary: Denies hematuria and Denies dysuria Musculoskeletal Musculoskeletal: Denies back pain and Denies numbness Integumentary/Breasts Skin/Breast: Denies lesions and Denies rash Neurologic Neurologic: Denies dizziness, Denies localized weakness and Denies numbness Allergic/Immunologic Allergic/Immunologic: Denies throat swelling [facility] Medical History (Updated 03/19/20 @ 16:56 by Sonya Greco DO) Bursitis of right shoulder (Inactive) Essential hypertension (Chronic) Impingement syndrome of right shoulder (Inactive) Rotator cuff tear, right (Inactive) Tendonitis of long head of biceps brachii of right shoulder (Inactive) Tinea pedis (Acute) Surgical History Nasal septoplasty RECONSTRUCTION OF NASAL PASSAGES AND NOSE @ [facility] Family History Mother Diabetes Personal history of malignant neoplasm Brother No problems noted. Step father Hyperlipidemia Social History Smoking/Tobacco Use Status: Former Tobacco Use Alcohol Intake: current Alcohol Intake frequency: holidays/special occasions only Alcohol type: beer Drug use: Daily Substance use type: marijuana Current gender identity: male Duration: decline to answer Frequency: 5-6 times per week Pat/Judaism: No preference Special pat needs: No Seatbelt use: always Helmet use: Yes Do you feel safe at home: Yes Do you feel safe in your relationship?: Yes Exam Const General: cooperative, healthy appearing and no acute distress HENMT Head: normal to inspection Mouth: oral mucosae normal Eyes General: appearance normal, both eyes and all related structures Neck Neck: normal visual inspection Resp Effort & Inspection: normal respiratory effort and able to speak in complete sentences Cardio Rate: regular rate Skin General skin exam: no rashes or lesions noted Neuro General: patient alert, patient awake, patient oriented x3 and no focal motor deficits Motor: muscle tone normal throughout Sensory Exam: no sensory deficits noted Extrem Right upper extremity: hand Details: vascular exam Details: radial pulse present and ulnar pulse present Elbow/forearm/wrist images: 1. 3 x 3 cm area of tenderness, mild edema consistent with contusion on right dorsal distal forearm. Other: No tenderness palpation of right elbow, right wrist. No right snuffbox tenderness. Psych Appearance: grossly normal Affect: normal affect Course Vital Signs Vital signs: Vital Signs Temperature 98.1 F 03/19/20 15:58 Pulse 90 03/19/20 15:58 Respiratory Rate 16 03/19/20 15:58 Blood Pressure 170/91 H 03/19/20 15:58 Pulse Oximetry 97 03/19/20 15:58 Temperature 98.1 F 03/19/20 15:58 Temperature Source Skin 03/19/20 15:58 Pulse 90 03/19/20 15:58 Respiratory Rate 16 03/19/20 15:58 Respiratory Effort Non-Labored 03/19/20 15:58 Blood Pressure 170/91 H 03/19/20 15:58 Blood Pressure Position Sitting 03/19/20 15:58 Pulse Oximetry 97 03/19/20 15:58 Oxygen Delivery Method Room Air 03/19/20 15:58 Oxygen Flow Rate 0 03/19/20 15:58 Pain Level 1 03/19/20 15:58
[2020-03-19 17:01] VITALS: BP 169/94; PULSE 83; RESP 18; TEMP 37.1; O2SAT 97
== END 2020-03-19 17:07 | disposition home or self-care (01) ==
PROVIDERS: Emergency Provider Physician Assistant; PCP Family Medicine
DX: S50.11XA Contusion of right forearm, initial encounter (principal); W20.8XXA Other cause of strike by thrown, projected or falling object, initial encounter; I10 Essential (primary) hypertension
CPT/HCPCS: 99284; 73090; 99283

== ENCOUNTER 2020-09-26 13:59 | Outpatient (CLI) | payer MEDICAID, SELFPAY ==
--- NOTE | 2020-09-26 11:30 | DI.RAD_ITS ---
EXAM: XR HAND RT COMPLETE CLINICAL HISTORY: contusion- 3rd finger and metacarpal,S60.221A TECHNIQUE: COMPARISON: CR RIGHT HAND COMPLETE from 10/19/2013 FINDINGS: Three views were obtained. There is reportedly history of trauma to the middle finger and 3rd metaca rpal region. There is no evidence of acute fracture. There are mild degenerative changes of the IP joints. IMPRESSION: RADIATION DOSE DELIVERED: Total DLP
== END 2020-09-26 14:19 ==
PROVIDERS: PCP Family Medicine; Visit Provider Nurse Practitioner
DX: S60.221A Contusion of right hand, initial encounter (principal)
CPT/HCPCS: 73130

== ENCOUNTER 2020-10-30 16:03 | Emergency (ER) | payer MEDICAID, SELFPAY ==
[2020-10-30] VITALS (23 sets, daily range): BP systolic 127–167; BP diastolic 75–94; PULSE 73–93; RESP 12–24; TEMP 36.8; O2SAT 95–98
--- NOTE | 2020-10-30 16:00 | RT.EKG_ITS ---
APPROVED REPORT Exam: Resting ECG Patient Location: E HR:84 bpm ECG Measurements Heart Rate 84 AXIS AK 193 P 48 QRSd 83 QRS -16 QT 337 T 37 QTc 399 Conclusion Sinus rhythm...normal P axis, V-rate 60- 99 Probable left atrial enlargement...P >50mS, <-0.10mV V1 Inferior infarct, old...Q >35mS, II III aVF Consider anteroseptal infarct...Q >30mS, dimin R, V1-V2 Physician: No STEMI, old Q waves, no significant elevation or depression. Unchanged from previous
[2020-10-30 16:24] LABS: Abs Immature Grans 0.05 10^3/uL (0.0-0.06); Absolute Basophil Count 0.03 10^3/uL (0.0-0.2); Absolute Eosinophil Count 0.18 10^3/uL (0.0-0.7); Absolute Lymphocyte Count 2.23 10^3/uL (1.2-3.4); Absolute Monocyte Count 0.59 10^3/uL (0.1-0.8); Absolute Neutrophil Count 4.17 10^3/uL (1.2-6.7); Basophils % 0.4; Eosinophils % 2.5; HCT 45.8 % (40.0-50.0); HGB 15.5 g/dL (13.5-17.5); Immature Grans % 0.7; Lymphocytes % 30.8; MCH 29.2 pg (27.0-33.0); MCHC 33.8 % (32.0-36.0); MCV 86.3 fL (80-95); MPV 8.7 fL (8.0-11.0); Monocytes % 8.1; Neutrophils % 57.5; Nucleated RBC 0 %; Platelet Count 281 10^3/uL (130-400); RBC 5.31 10^6/uL (4.36-5.78); RDW 12.4 % (11.8-14.1); RDW-SD 38.9 fL; WBC 7.25 10^3/uL (4.4-10.8)
--- NOTE | 2020-10-30 16:30 | DI.RAD_ITS ---
EXAM: XR PORTABLE CHEST AP CLINICAL HISTORY: central chest pain, brief. TECHNIQUE: 2D digital imaging was performed. COMPARISON: CT CHEST WITH CONTRAST from 08/09/2017 CR CHEST 2 VIEWS PA,LAT from 08/09/2017 FINDINGS: Heart size is normal. The mediastinum is not widened. Lungs are clear. No infiltrates nor obvious pleural effusions. IMPRESSION: No acute pulmonary findings on this single AP portable view of the chest. DATA REPOSITORY: RADIATION DOSE DELIVERED: All CT scans at this facility use at least one of these dose optimization techniques: automated exposure control; mA and/or kV adjustment per patient size (includes targeted e xams where dose is matched to clinical indication); or iterative reconstruction.
--- NOTE | 2020-10-30 16:44 | W.ED.GENAD ---
Discharge Plan Disposition Patient Disposition: HOME Condition: Good Discharge Details Clinical Impression: Chest pain Primary Care Provider: Young Caban ED Provider: Efra Cheng Home Meds and New Rx's Prescriptions: Continued metoprolol succinate 100 mg tablet extended release 24 hr 100 mg PO DAILY Qty: 90 RF: 3 losartan 100 mg tablet 100 mg PO DAILY Qty: 90 RF: 3 amlodipine 5 mg tablet 5 mg PO DAILY Qty: 90 RF: 4 sildenafil [Viagra] 25 mg tablet 25 mg PO DAILY PRN (Reason: sexual activity) Qty: 30 RF: 8 metformin 500 mg tablet 500 mg PO BID Qty: 180 RF: 3 ibuprofen 600 mg tablet 600 mg PO TID PRN (Reason: pain) Qty: 90 RF: 1 terbinafine HCl 250 mg tablet 250 mg PO DAILY Qty: 30 RF: 0 PROVENTIL HFA 18 GM HFA.AER.AD 2 puff Inhalation DAILY Qty: 1 RF: 3 atorvastatin 20 mg tablet 20 mg PO QPM Qty: 90 RF: 3 albuterol sulfate [ProAir HFA] 90 mcg/actuation HFA aerosol inhaler 2 puff Inhalation Q4H PRN Qty: 1 RF: 5 dextroamphetamine-amphetamine [Adderall XR] 10 mg capsule,extended release 24hr 10 mg PO QPM MDD 40 mg Qty: 28 RF: 0 dextroamphetamine-amphetamine [Adderall XR] 30 mg capsule,extended release 24hr 30 mg PO QAM MDD 40 mg Qty: 28 RF: 0 aspirin [Aspir-81] 81 MG tablet,delayed release (DR/EC) 325 mg PO DAILY Qty: 0 RF: 0 Discharge Instructions Instructions: Chest Pain (ED) Additional Instructions: At this time your symptoms appearing consistent with a heart attack. Your laboratory work-up and chest x-ray was reassuring. You have decided to hold off on the repeat testing this evening. However as we discussed together it is very important that you follow-up closely with your primary care provider and discuss the stress test with them. If you notice any worsening of your symptoms, or any new symptoms such as vomiting, diarrhea, fever, chills, shortness of breath, chest pain, numbness, weakness, or fainting , please return immediately to the emergency department for reevaluation. Please follow up with your primary care provider as soon as possible for reassessment and reevaluation. As always, it was a pleasure participating in your medical care today. Referrals: Young Caban. [Primary Care Provider] - Medical Decision Making 49-year-old male with a past medical history of obesity, asthma, hypertension, diabetes, presents today for evaluation of an atypical episode of chest pain. Patient states that he has had a notable amount of stress in his life as of late. He states that while he was at work he had a brief episode of atypical chest tightness not necessarily while exerting himself. At that same time he had bilateral arm tingling and numbness over his anterior chest and abdomen. It lasted for just a few seconds, then resolved on its own without intervention. About 30 minutes later he again had an episode like that that just lasted a second or 2 and resolved on its own. No syncope, no tearing or ripping sensation in his chest, no leg pain. No pleuritic chest pain. No exertional discomfort. No increase shortness of breath. No other complaints at this time. Patient denies any history of this in the past. He denies any other complaints at this time. No other modifying factors. Although the history of ACS is on his problem list the patient denies any history of previous heart attack. Physical exam is notably unremarkable, radial pulses are equal. Patient has no chest wall tenderness whatsoever. Vital signs are very stable. I suspect the cause of the patient's symptoms are most likely stress related, while working in a hot environment at work and potentially being mildly dehydrated. However due to his age and risk factors I do feel that further cardiac evaluation is indicated at this time. Signs and symptoms clinically at this time appear inconsistent with STEMI, dissection, or PE. Pneumothorax is unlikely. Will monitor closely and reassess. 5:44 PM Patient's operatory work-up has returned, no significant abnormalities. Troponin normal. EKG unremarkable and unchanged. Patient remains asymptomatic. He is feeling well. In further discussion with him I suspect that a notable component of his symptoms may be potentially related or exacerbated by stress. He certainly does have cardiac risk factors but his symptoms at this time are inconsistent with STEMI or ACS. I did discuss staying for repeat troponin at 3 hours, and over the patient felt that with his current symptoms and how well he is feeling at he would like to leave at this time. We discussed the risks and benefits of this and he understands. Patient will be discharged respecting his request, do recommend close follow-up with his PCP and further outpatient stress testing to be discussed with his PCP. I have extensively reviewed the treatment plan and discharge instructions with the patient. I have addressed all patient concerns at this time. The patient was made aware of what symptoms to monitor for that would warrant a return to the emergency department. Discussed the plan with the patient, they demonstrate verbal understanding and agreement with our assessment and plan at this time. The documentation in this chart was dictated using [employer] dictation software. Please excuse any dictation errors. FINDINGS: Lungs: Unremarkable. No consolidation. Pleural spaces: Unremarkable. No pleural effusion. No pneumothorax. Heart/Mediastinum: Unremarkable. No cardiomegaly. Bones/joints: Degenerative changes in the spine. IMPRESSION: No acute finding. Thank you for allowing us to participate in the care of your patient. Dictated and Authenticated by: Francheska Perdomo MD 10/30/2020 4:57 PM Eastern Time ([place] & [place]) HPI General Date/Time Provider Initiated Documentation: 10/30/20 16:16. HPI Narrative: 49-year-old male with a past medical history of obesity, asthma, hypertension, diabetes, presents today for evaluation of an atypical episode of chest pain. Patient states that he has had a notable amount of stress in his life as of late. He states that while he was at work he had a brief episode of atypical chest tightness not necessarily while exerting himself. At that same time he had bilateral arm tingling and numbness over his anterior chest and abdomen. It lasted for just a few seconds, then resolved on its own without intervention. About 30 minutes later he again had an episode like that that just lasted a second or 2 and resolved on its own. No syncope, no tearing or ripping sensation in his chest, no leg pain. No pleuritic chest pain. No exertional discomfort. No increase shortness of breath. No other complaints at this time. Patient denies any history of this in the past. He denies any other complaints at this time. No other modifying factors. Although the history of ACS is on his problem list the patient denies any history of previous heart attack. Related Data Home Medications Medication Instructions Recorded Confirmed aspirin [Aspir-81] 325 mg PO DAILY #0 tab-cap 02/23/17 10/30/20 atorvastatin 20 mg tablet 20 mg PO QPM #90 tab 09/03/19 10/30/20 ibuprofen 600 mg tablet 600 mg PO TID PRN #90 tab 02/25/20 10/30/20 terbinafine HCl 250 mg tablet 250 mg PO DAILY #30 tab 02/25/20 10/30/20 albuterol sulfate 90 mcg/actuation 2 puff INHALATION Q4H PRN #1 03/27/20 10/30/20 aerosol inhaler inhaler amlodipine 5 mg tablet 5 mg PO DAILY #90 tab-cap 05/30/20 10/30/20 losartan 100 mg tablet 100 mg PO DAILY #90 tab-cap 05/30/20 10/30/20 metformin 500 mg tablet 500 mg PO BID #180 tab 05/30/20 10/30/20 metoprolol succinate 100 mg 100 mg PO DAILY #90 tab 05/30/20 10/30/20 tablet,extended release 24 hr sildenafil 25 mg tablet 25 mg PO DAILY PRN #30 tab 05/30/20 10/30/20 dextroamphetamine-amphetamine ER 10 mg PO QPM #28 cap MDD 40 mg 10/17/20 10/30/20 10 mg 24hr capsule,extend release dextroamphetamine-amphetamine ER 30 mg PO QAM #28 cap MDD 40 mg 10/17/20 10/30/20 30 mg 24hr capsule,extend release Previous Rx's Medication Instructions Recorded aspirin [Aspir-81] 325 mg PO DAILY #0 tab-cap 02/23/17 atorvastatin 20 mg tablet 20 mg PO QPM #90 tab 09/03/19 ibuprofen 600 mg tablet 600 mg PO TID PRN #90 tab 02/25/20 terbinafine HCl 250 mg tablet 250 mg PO DAILY #30 tab 02/25/20 albuterol sulfate 90 mcg/actuation 2 puff INHALATION Q4H PRN #1 03/27/20 aerosol inhaler inhaler amlodipine 5 mg tablet 5 mg PO DAILY #90 tab-cap 05/30/20 losartan 100 mg tablet 100 mg PO DAILY #90 tab-cap 05/30/20 metformin 500 mg tablet 500 mg PO BID #180 tab 05/30/20 metoprolol succinate 100 mg 100 mg PO DAILY #90 tab 05/30/20 tablet,extended release 24 hr sildenafil 25 mg tablet 25 mg PO DAILY PRN #30 tab 05/30/20 dextroamphetamine-amphetamine ER 10 mg PO QPM #28 cap MDD 40 mg 10/17/20 10 mg 24hr capsule,extend release dextroamphetamine-amphetamine ER 30 mg PO QAM #28 cap MDD 40 mg 10/17/20 30 mg 24hr capsule,extend release Allergies Allergy/AdvReac Type Severity Reaction Status Date / Time lisinopril AdvReac Unknown cough Verified 10/10/20 08:58 General Stated Complaint: Chest Pain CATHERINE: 2 Review of Systems All systems reviewed & are unremarkable except as noted in HPI and below [facility] Medical History Bursitis of right shoulder De Quervain's disease (tenosynovitis) Essential hypertension Impingement syndrome of right shoulder Morbid obesity Rotator cuff tear, right Tendonitis of long head of biceps brachii of right shoulder Tinea pedis Surgical History Nasal septoplasty RECONSTRUCTION OF NASAL PASSAGES AND NOSE @ [facility] Family History Mother Diabetes Personal history of malignant neoplasm Brother No problems noted. Step father Hyperlipidemia Social History Smoking/Tobacco Use Status: Former Tobacco Use Smoking risk assessment performed?: Yes Alcohol Intake: current Alcohol Intake frequency: holidays/special occasions only Alcohol type: beer Drug use: Daily Substance use type: marijuana Current gender identity: male Duration: decline to answer Frequency: 5-6 times per week Pat/Jew: No preference Special pat needs: No Seatbelt use: always Helmet use: Yes Do you feel safe at home: Yes Do you feel safe in your relationship?: Yes Exam Narrative Exam Narrative: 1.Const: Well-nourished, Well-developed, appearing stated age 2.Eyes: PERRL, no conjunctival injection, and symmetrical lids. 3.ENT: Atraumatic external nose and ears. Moist MM. Neck: Symmetric, trachea midline, No thyromegaly. 4.CVS: +S1/S2, No murmurs or gallops. Peripheral pulses 2+ and equal in all extremities. Brisk capillary refill in all extremities. Radial pulses +2 bilaterally. 5.RESP: Unlabored respiratory effort. Clear to auscultation bilaterally. No wheezes rales or rhonchi 6.GI: Soft, Nontender/Nondistended, No hepatosplenomegaly. No guarding or rebound. 7.MSK: Normocephalic/Atraumatic, Extremities w/o deformity or ttp No cyanosis or clubbing, Normal movement of all extremities, there is no calf tenderness. 8.Skin: Warm, Dry. No rashes or lesions. 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 Sensation grossly intact, no focal neurologic deficits. 10.Psych: (AAO) x3. Appropriate mood and affect Course Vital Signs Vital signs: Vital Signs Temperature 36.8 C 10/30/20 16:09 Pulse 92 H 10/30/20 16:09 Respiratory Rate 19 10/30/20 16:09 Blood Pressure 167/92 H 10/30/20 16:09 Pulse Oximetry 95 10/30/20 16:09 Temperature 36.8 C 10/30/20 16:09 Temperature Source Temporal Artery Scan 10/30/20 16:09 Pulse 82 10/30/20 16:32 Pulse 86 10/30/20 16:40 Respiratory Rate 12 10/30/20 16:32 Respiratory Effort Non-Labored 10/30/20 16:14 Blood Pressure 127/86 10/30/20 16:32 Blood Pressure Mean 95 10/30/20 16:32 Blood Pressure Position Sitting 10/30/20 16:09 Pulse Oximetry 96 10/30/20 16:40 Oxygen Delivery Method Room Air 10/30/20 16:09 Oxygen Flow Rate 0 10/30/20 16:09 Pain Level 0 10/30/20 16:09 Lab/Test Results Lab/Test Results: Laboratory Tests Range/Units 10/30/20 16:16 WBC (4.4-10.8) 10^3/uL 7.25 RBC (4.36-5.78) 10^6/uL 5.31 Hgb (13.5-17.5) g/dL 15.5 Hct (40.0-50.0) % 45.8 MCV (80-95) fL 86.3 MCH (27.0-33.0) pg 29.2 MCHC (32.0-36.0) % 33.8 RDW (11.8-14.1) % 12.4 Plt Count (130-400) 10^3/uL 281 MPV (8.0-11.0) fL 8.7 Immature Gran % 0.7 Neutrophils % 57.5 Lymphocytes % 30.8 Monocytes % 8.1 Eosinophils % 2.5 Basophils % 0.4 Nucleated RBC % % 0 Absolute Neutrophils (1.2-6.7) 10^3/uL 4.17 Absolute Lymphocytes (1.2-3.4) 10^3/uL 2.23 Absolute Monocytes (0.1-0.8) 10^3/uL 0.59 Absolute Eosinophils (0.0-0.7) 10^3/uL 0.18 Absolute Basophils (0.0-0.2) 10^3/uL 0.03
[2020-10-30 16:45] LABS: ALT 31 U/L (16-63); AST 12 U/L (15-37); Alkaline Phosphatase 80 U/L (46-116); Anion Gap 9.4 mmol/L (3-11); BUN 15 mg/dL (7-18); Bilirubin, Total 0.5 mg/dL (0.2-1.0); CO2 27.6 mmol/L (21.0-32.0); Calcium 9.4 mg/dL (8.5-10.1); Chloride 101 mmol/L (98-107); Glucose 106 mg/dL (74-106); Magnesium 1.9 mg/dL (1.8-2.4); Sodium 138 mmol/L (136-145); Total Protein 7.7 g/dL (6.4-8.2)
[2020-10-30 16:49] LABS: Troponin I < 0.05 ng/mL (<0.06)
[2020-10-30] MEDS: Normal Saline 500 ML IV (16:52)
--- NOTE | 2020-10-30 16:58 | DI.VRAD_ITS ---
PROCEDURE INFORMATION: Exam: XR Chest Exam date and time: 10/30/2020 4:52 PM Age: 49 years old Clinical indication: Patient HX: Central chest pain, brief TECHNIQUE: Imaging protocol: XR of the chest Views: 1 view. COMPARISON: CT CHEST WITH CONTRAST 08/09/2017 12:17 PM FINDINGS: Lungs: Unremarkable. No consolidation. Pleural spaces: Unremarkable. No pleural effusion. No pneumothorax. Heart/Mediastinum: Unremarkable. No cardiomegaly. Bones/joints: Degenerative changes in the spine. IMPRESSION: No acute finding. Dictated and Authenticated by: Francheska Perdomo MD. Ordering:JUAN A Kraus MD
== END 2020-10-30 17:48 | disposition home or self-care (01) ==
PROVIDERS: Emergency Provider Student in an Organized Health Care Education/Training Program; PCP Family Medicine
DX: R07.89 Other chest pain (principal); R20.2 Paresthesia of skin; F43.8 Other reactions to severe stress
CPT/HCPCS: 36415; 80053; 93005; 96360; 99285; 71045; 83735; 84484; 85025; 93010

== ENCOUNTER 2021-02-11 23:18 | Emergency (ER) | payer MEDICAID, SELFPAY ==
[2021-02-11 23:22] VITALS: BP 160/86; PULSE 83; RESP 18; TEMP 36.6; O2SAT 94
--- NOTE | 2021-02-11 23:43 | ED.GENADUL_ITS ---
Discharge Plan Disposition Patient Disposition: HOME Condition: Good Discharge Details Clinical Impression: Acute foreign body of left ear Primary Care Provider: Young Caban ED Provider: Efra Cheng Home Meds and New Rx's Prescriptions: Continued metoprolol succinate 100 mg tablet extended release 24 hr 100 mg PO DAILY Qty: 90 RF: 3 losartan 100 mg tablet 100 mg PO DAILY Qty: 90 RF: 3 amlodipine 5 mg tablet 5 mg PO DAILY Qty: 90 RF: 4 metformin 500 mg tablet 500 mg PO BID Qty: 180 RF: 3 ibuprofen 600 mg tablet 600 mg PO TID PRN (Reason: pain) Qty: 90 RF: 1 terbinafine HCl 250 mg tablet 250 mg PO DAILY Qty: 30 RF: 0 PROVENTIL HFA 18 GM HFA.AER.AD 2 puff Inhalation DAILY Qty: 1 RF: 3 atorvastatin 20 mg tablet 20 mg PO QPM Qty: 90 RF: 3 albuterol sulfate [ProAir HFA] 90 mcg/actuation HFA aerosol inhaler 2 puff Inhalation Q4H PRN Qty: 1 RF: 5 sildenafil [Viagra] 25 mg tablet 25 mg PO DAILY PRN (Reason: sexual activity) Qty: 30 RF: 8 dextroamphetamine-amphetamine [Adderall XR] 10 mg capsule,extended release 24hr 10 mg PO QPM MDD 40 mg Qty: 28 RF: 0 dextroamphetamine-amphetamine [Adderall XR] 30 mg capsule,extended release 24hr 30 mg PO QAM MDD 40 mg Qty: 28 RF: 0 aspirin [Aspir-81] 81 MG tablet,delayed release (DR/EC) 325 mg PO DAILY Qty: 0 RF: 0 Discharge Instructions Additional Instructions: The needle was removed from your ear. Please apply the Cipro drops, 2 to 3 drops every 4-6 hours into the affected ear for the next 3 to 5 days. You will notice some blood in it for the next 2 or 3 days, from the trauma that the bug caused. If you notice any worsening of your symptoms, or any new symptoms such as drainage from your ear, decreased hearing, vomiting, diarrhea, fever, chills, shortness of breath, chest pain, numbness, weakness, or fainting , please return immediately to the emergency department for reevaluation. Please follow up with your primary care provider as soon as possible for reassessment and reevaluation. As always, it was a pleasure participating in your medical care today. Referrals: Young Caban. [Primary Care Provider] - Medical Decision Making 50-year-old male presents for foreign body in his left ear. Patient states that he was sleeping when a bug flew into his ear. He admits to pain in that area and a small amount of blood. He did try to wash it out with water but was unsuccessful. He denies any other complaints at this time. Tetracaine was applied, initially suction was attempted but this did not result in success. Pituitary hemostats were then used to grasp a leg from the insect and we were then able to remove it successfully. Repeat assessment demonstrates no evidence of tympanic membrane rupture. Small amount of blood. Will give Cipro drops for prophylaxis of infection. Discussed red flags which to return. I have extensively reviewed the treatment plan and discharge instructions with the patient. I have addressed all patient concerns at this time. The patient was made aware of what symptoms to monitor for that would warrant a return to the emergency department. Discussed the plan with the patient, they demonstrate verbal understanding and agreement with our assessment and plan at this time. The documentation in this chart was dictated using Fondu dictation software. Please excuse any dictation errors. HPI General Date/Time Provider Initiated Documentation: 02/11/21 23:22 . HPI Narrative: 50-year-old male presents for foreign body in his left ear. Patient states that he was sleeping when a bug flew into his ear. He admits to pain in that area and a small amount of blood. He did try to wash it out with water but was unsuccessful. He denies any other complaints at this time. Related Data Home Medications Medication Instructions Recorded Confirmed aspirin [Aspir-81] 325 mg PO DAILY #0 tab-cap 02/23/17 02/11/21 atorvastatin 20 mg tablet 20 mg PO QPM #90 tab 09/03/19 10/30/20 ibuprofen 600 mg tablet 600 mg PO TID PRN #90 tab 02/25/20 02/11/21 terbinafine HCl 250 mg tablet 250 mg PO DAILY #30 tab 02/25/20 02/11/21 albuterol sulfate 90 mcg/actuation 2 puff INHALATION Q4H PRN #1 03/27/20 10/30/20 aerosol inhaler inhaler amlodipine 5 mg tablet 5 mg PO DAILY #90 tab-cap 05/30/20 10/30/20 losartan 100 mg tablet 100 mg PO DAILY #90 tab-cap 05/30/20 02/11/21 metformin 500 mg tablet 500 mg PO BID #180 tab 05/30/20 10/30/20 metoprolol succinate 100 mg 100 mg PO DAILY #90 tab 05/30/20 10/30/20 tablet,extended release 24 hr sildenafil 25 mg tablet 25 mg PO DAILY PRN #30 tab 01/02/21 02/11/21 dextroamphetamine-amphetamine ER 10 mg PO QPM #28 cap MDD 40 mg 01/16/21 02/11/21 10 mg 24hr capsule,extend release dextroamphetamine-amphetamine ER 30 mg PO QAM #28 cap MDD 40 mg 01/16/21 02/11/21 30 mg 24hr capsule,extend release Previous Rx's Medication Instructions Recorded aspirin [Aspir-81] 325 mg PO DAILY #0 tab-cap 02/23/17 atorvastatin 20 mg tablet 20 mg PO QPM #90 tab 09/03/19 ibuprofen 600 mg tablet 600 mg PO TID PRN #90 tab 02/25/20 terbinafine HCl 250 mg tablet 250 mg PO DAILY #30 tab 02/25/20 albuterol sulfate 90 mcg/actuation 2 puff INHALATION Q4H PRN #1 03/27/20 aerosol inhaler inhaler amlodipine 5 mg tablet 5 mg PO DAILY #90 tab-cap 05/30/20 losartan 100 mg tablet 100 mg PO DAILY #90 tab-cap 05/30/20 metformin 500 mg tablet 500 mg PO BID #180 tab 05/30/20 metoprolol succinate 100 mg 100 mg PO DAILY #90 tab 05/30/20 tablet,extended release 24 hr sildenafil 25 mg tablet 25 mg PO DAILY PRN #30 tab 01/02/21 dextroamphetamine-amphetamine ER 10 mg PO QPM #28 cap MDD 40 mg 01/16/21 10 mg 24hr capsule,extend release dextroamphetamine-amphetamine ER 30 mg PO QAM #28 cap MDD 40 mg 01/16/21 30 mg 24hr capsule,extend release Allergies Allergy/AdvReac Type Severity Reaction Status Date / Time lisinopril AdvReac Unknown cough Verified 10/10/20 08:58 General Stated Complaint: EarProblem CATHERINE: 4 Review of Systems All systems reviewed & are unremarkable except as noted in HPI and below PFS Medical History Bursitis of right shoulder De Quervain's disease (tenosynovitis) Essential hypertension Impingement syndrome of right shoulder Morbid obesity Rotator cuff tear, right Tendonitis of long head of biceps brachii of right shoulder Tinea pedis Surgical History Nasal septoplasty RECONSTRUCTION OF NASAL PASSAGES AND NOSE @ [facility] Family History Mother Diabetes Personal history of malignant neoplasm Brother No problems noted. Step father Hyperlipidemia Social History Smoking/Tobacco Use Status: Former Tobacco Use Smoking risk assessment performed?: Yes Alcohol Intake: current Alcohol Intake frequency: holidays/special occasions only Alcohol type: beer Drug use: Daily Substance use type: marijuana Current gender identity: male Duration: decline to answer Frequency: 5-6 times per week Pat/Latter-Day: No preference Special pat needs: No Seatbelt use: always Helmet use: Yes Do you feel safe at home: Yes Do you feel safe in your relationship?: Yes Exam Narrative Exam Narrative: 1.Const: Well-nourished, Well-developed, appearing stated age 2.Eyes: PERRL, no conjunctival injection, and symmetrical lids. 3.ENT: Atraumatic external nose and ears. Moist MM. Neck: Symmetric, trachea midline, No thyromegaly. There is a notably large beetle present in the patient's left ear burrowing up against the tympanic membrane. There is a small amount of blood in that area as well. No evidence of tympanic membrane rupture 4.CVS: +S1/S2, No murmurs or gallops. Peripheral pulses 2+ and equal in all extremities. Brisk capillary refill in all extremities. 5.RESP: Unlabored respiratory effort. Clear to auscultation bilaterally. No wheezes rales or rhonchi 6.GI: Soft, Nontender/Nondistended, No hepatosplenomegaly. No guarding or rebound. 7.MSK: Normocephalic/Atraumatic, Extremities w/o deformity or ttp No cyanosis or clubbing, Normal movement of all extremities 8.Skin: Warm, Dry. No rashes or lesions. 9.Neuro: edge inker uppers II-XII grossly intact. Sensation grossly intact, no focal neurologic deficits. 10.Psych: (AAO) x3. Appropriate mood and affect Course Vital Signs Vital signs: Vital Signs Temperature 36.6 C 02/11/21 23:22 Pulse 83 02/11/21 23:22 Respiratory Rate 18 02/11/21 23:22 Blood Pressure 160/86 H 02/11/21 23:22 Pulse Oximetry 94 02/11/21 23:22 Temperature 36.6 C 02/11/21 23:22 Temperature Source Skin 02/11/21 23:22 Pulse 83 02/11/21 23:22 Respiratory Rate 18 02/11/21 23:22 Respiratory Effort Non-Labored 02/11/21 23:26 Blood Pressure 160/86 H 02/11/21 23:22 Pulse Oximetry 94 02/11/21 23:22 Pain Level 7 02/11/21 23:22 Procedures Foreign Body Removal Time Out Performed: yes Site: left and ear Description of foreign body: insect Sedation/Analgesia: none Technique: removal with forceps Confirmed by:: direct visualization Complications: none Post-procedure exam: awake, alert, normal BP, normal HR and normal O2 sat Neurovascular: normal distal pulse, normal capillary fill and other (Repeat visualization demonstrates intact tympanic membrane. No evidence of rupture at this time.)
[2021-02-12] MEDS: Tetracaine 0.5% 4 ML BTL
[2021-02-12] MEDS: Ciprofloxacin 0.3% 2.5 ML BTL OS
== END 2021-02-12 00:03 | disposition home or self-care (01) ==
PROVIDERS: Emergency Provider Student in an Organized Health Care Education/Training Program; PCP Family Medicine
DX: T16.2XXA Foreign body in left ear, initial encounter (principal)
CPT/HCPCS: 69200

== ENCOUNTER 2022-01-25 03:19 | Outpatient (CLI) | payer MEDICAID, SELFPAY ==
[2022-01-25 16:18] LABS: Potassium 3.8 mmol/L (3.5-5.1)
[2022-01-25 23:16] LABS: PSA, Screening 0.5 ng/mL (<=3.5)
== END 2022-01-25 03:20 | disposition home or self-care (01) ==
PROVIDERS: PCP Family Medicine; Visit Provider Family Medicine
DX: I10 Essential (primary) hypertension (principal); Z12.5 Encounter for screening for malignant neoplasm of prostate
CPT/HCPCS: 36415; 84153; 82565; 84132

== ENCOUNTER 2022-04-04 21:14 | Outpatient (REF) | payer MEDICAID, SELFPAY ==
[2022-04-05 20:12] LABS: Albumin ug/mg Crea 209 (<30); Albumin, Ur 46.6 mg/dL (See Note); Creatinine, Ur 223.1 mg/dL (See Note)
== END 2022-04-04 21:15 | disposition home or self-care (01) ==
LOC: LBN 21:14
PROVIDERS: PCP Family Medicine; Visit Provider Family Medicine
DX: E11.9 Type 2 diabetes mellitus without complications (principal)
CPT/HCPCS: 82043; 82570

== ENCOUNTER 2022-04-11 04:11 | Outpatient (CLI) | payer MEDICAID, SELFPAY ==
[2022-04-11 17:17] LABS: Calculated LDL 139 mg/dL (<100); Cholesterol 229 mg/dL (<200); HDL Cholesterol 55 mg/dL (40-60); Triglyceride 179 mg/dL (<150)
[2022-04-12 20:45] LABS: Albumin ug/mg Crea 210 (<30); Albumin, Ur 55.5 mg/dL (See Note); Creatinine, Ur 264.7 mg/dL (See Note)
== END 2022-04-11 04:12 | disposition home or self-care (01) ==
LOC: LBO 04:11
PROVIDERS: PCP Family Medicine; Visit Provider Family Medicine
DX: E78.5 Hyperlipidemia, unspecified
CPT/HCPCS: 36415; 80061; 82043; 82570

== ENCOUNTER 2022-12-25 11:07 | Outpatient (CLI) | payer MEDICAID, SELFPAY ==
--- NOTE | 2022-12-25 10:15 | DI.RAD_ITS ---
Exam(s) XR KNEE LT 3V AP,LAT,DONA EXAM: XR KNEE LT 3V AP,LAT,DONA CLINICAL HISTORY: swelling and pain behind knee, M79.89. TECHNIQUE: 2D digital imaging was performed. Three views. COMPARISON: No exams were available for comparison FINDINGS: Exam is somewhat limited by overlying clothing. BONES: No acute fracture is present. No bony destructive lesion is seen. JOINTS: The knee is normally aligned. No joint effusion is seen. SOFT TISSUE: Normal. IMPRESSION: Normal radiographs of the left knee. DATA REPOSITORY: RADIATION DOSE DELIVERED:
--- NOTE | 2022-12-25 10:15 | DI.US_ITS ---
Exam(s) US LOWER EXTREMITY VENOUS LT EXAM: US LOWER EXTREMITY VENOUS LT CLINICAL HISTORY: swelling in LLE, pain, M79.89. TECHNIQUE: Lower extremity venous ultrasound performed using grayscale, color-flow, and spectral Do ppler analysis. COMPARISON: No exams were available for comparison FINDINGS: The common femoral, femoral and popliteal veins demonstrate normal compressibility, augmentation, and color Doppler. The posterior tibial veins are patent. No saphenous vein thrombosis or other superfi cial venous thrombosis is seen. No hematoma or Mercado's cyst is seen. IMPRESSION: Negative lower extremity ultrasound. No evidence of DVT. DATA REPOSITORY:
== END 2022-12-25 11:27 ==
LOC: DI 11:08
PROVIDERS: PCP Family Medicine; Visit Provider Nurse Practitioner Family
DX: M79.89 Other specified soft tissue disorders (principal); R10.30 Lower abdominal pain, unspecified; R22.42 Localized swelling, mass and lump, left lower limb
CPT/HCPCS: 73562; 93971

== ENCOUNTER → 2023-06-26 01:14 | Outpatient (CLI) | payer MEDICAID, SELFPAY ==
--- NOTE | 2023-06-26 07:00 | DI.MRI_ITS ---
Exam(s) MR LOWER JOINT LT WO EXAM: MR LOWER JOINT LT WO CLINICAL HISTORY: PAIN,internal derangement lt knee,m23.92 TECHNIQUE: Multiplanar multisequence MRI of the knee was performed. COMPARISON: CR XR KNEE LT 3V AP,LAT,DONA from 12/25/2022 FINDINGS: EFFUSION: Prominent joint effusion. There is also a Mercado cyst in the medial popliteal fossa measuri ng 3.6 cm cephalocaudal length by 1.2 cm AP x 0.8 cm wide. This does not appear ruptured and does no t contain loose bodies. MARROW:No fractures but there is some bone contusion signal in the medial tibial plateau and subartic ular edema noted in the medial femoral condyle. See below. There are no significant osseous lesions . PATELLOFEMORAL COMPARTMENT: The quadriceps tendon is intact. The patellar ligament is intact. There is mild subcutaneous edema anterior to the upper patellar ligament including a small fluid collectio n consistent with lower prepatellar bursitis. There is mild surface irregularity of the retropatellar cartilage but no significant thinning nor lilliana p fissures in the retropatellar cartilage and there is no abnormal intraosseous signal in the patella . There are no osteochondral defects at this level. There is no intraosseous signal abnormality to sug gest recent patellar dislocation. There are no patellar retinacular tears. CRUCIATE LIGAMENTS: The anterior cruciate ligament is intact.The posterior cruciate ligament is intac t. MEDIAL COMPARTMENT/MEDIAL MENISCUS: There is very thin horizontal signal abnormality in the body-post erior horn of the medial meniscus not contacting the inferior articular surface. However, at the lev el of the meniscal root on sagittal images there appears to be a small tear which violates the superi or articular surface. There is no separation of fragments at this level. No prominent meniscal intr usion or extrusion, and there are no flipped meniscal fragments.Anterior horn of the medial meniscus appears relatively intact. There is significant thinning of the articular cartilage over the main weight-bearing surface in the outer half of the medial femoral condyle with an area of full-thickness thinning evident and subartic ular focal bone edema. This is at risk for developing osteochondral defect. There is also marginal osteophytes and subarticular edema in the subjacent medial tibial plateau. MEDIAL COLLATERAL LIGAMENT: Mild sprain signal. No high-grade tear. LATERAL COMPARTMENT/LATERAL MENISCUS: There is no evidence of lateral meniscal tear.There are no lynn dral defects, osteochondral defects, subarticular marrow edema, nor osteophytes evident. ILIOTIBIAL BAND: Intact LATERAL COLLATERAL LIGAMENT COMPLEX: The fibular collateral ligament is intact. The biceps femoris t endon is intact.Popliteus muscle and tendon are intact. IMPRESSION: 1. There is tear of the posterior horn of the medial meniscus, as described above. There is also sig nificant cartilage thinning over the weight-bearing surface of the medial femoral condyle. One area in the main weight-bearing surface of the medial femoral condyle exhibits full-thickness chondral def ect and relatively focal overlying intraosseous edema, this at risk for becoming and osteo chondral d efect in the future. Moderate degenerative changes in the medial compartment including the above as well as small marginal osteophytes. Lateral meniscus and lateral compartment relatively unremarkable. 2. There are no cruciate ligament tears. 3. Mild sprain signal noted in the medial collateral ligament. No high-grade tear. LCL complex inta ct 4. Mild surface irregularity of the retropatellar cartilage without prominent thinning nor deep fissu res nor abnormal intraosseous signal in the patella. 5. Moderate-large knee joint effusion. Mercado cyst with measurements as above. No loose intra-artic ular bodies in the main joint nor in the Mercado cyst.. DATA REPOSITORY:
== END ==
PROVIDERS: PCP Family Medicine; Visit Provider Student in an Organized Health Care Education/Training Program
DX: M23.92 Unspecified internal derangement of left knee (principal); M25.461 Effusion, right knee; M25.462 Effusion, left knee
CPT/HCPCS: 73721

== ENCOUNTER 2023-07-01 15:02 | Outpatient (CLI) | payer MEDICAID, SELFPAY ==
--- NOTE | 2023-07-01 09:01 | DI.RAD_ITS ---
Exam(s) XR STANDING ALIGNMENT EXAM: XR STANDING ALIGNMENT CLINICAL HISTORY: LEFT KNEE PAIN. TECHNIQUE: 2D digital imaging was performed. Standing AP views were performed from the pelvis throu gh the ankles. COMPARISON: CR XR KNEE LT 3V AP,LAT,DONA from 12/25/2022 FINDINGS: BONES: No acute fracture is present. No bony destructive lesion is seen. Leg length discrepancy: Approximately 5 millimeters, left greater than right. JOINTS: Knees: Mild bilateral medial femoral tibial joint space narrowing and mild periarticular spur ring. The ankle joints are unremarkable. The hip joints are unremarkable. SOFT TISSUE: Normal. IMPRESSION: Mild degenerative changes of the medial femoral tibial joint spaces bilaterally.. Mild leg length discrepancy. DATA REPOSITORY: RADIATION DOSE DELIVERED:
== END 2023-07-01 15:03 | disposition home or self-care (01) ==
LOC: DIORS 15:02
PROVIDERS: PCP Family Medicine; Visit Provider Student in an Organized Health Care Education/Training Program
DX: M17.11 Unilateral primary osteoarthritis, right knee (principal); M17.12 Unilateral primary osteoarthritis, left knee
CPT/HCPCS: 77073

== ENCOUNTER 2023-07-17 02:48 | Outpatient (CLI) | payer MEDICAID, SELFPAY ==
[2023-07-17 14:33] LABS: HCT 45.3 % (40.0-50.0); HGB 15.3 g/dL (13.5-17.5); MCHC 33.8 % (32.0-36.0); MCV 86 fL (80-95); MPV 8.4 fL (8.0-11.0); Platelet Count 265 10^3/uL (130-400); RBC 5.28 10^6/uL (4.36-5.78); RDW 12.7 % (11.8-14.1); RDW-SD 39.4 fL; WBC 6.85 10^3/uL (4.4-10.8)
[2023-07-17 15:01] LABS: Anion Gap 4.5 mmol/L (3-11); BUN 18 mg/dL (7-18); CO2 29.5 mmol/L (21.0-32.0); Calcium 8.9 mg/dL (8.5-10.1); Chloride 102 mmol/L (98-107); Estimated GFR 89.44 (mL/min/1.73m2); Glucose 111 mg/dL (74-106); Potassium 4.3 mmol/L (3.5-5.1); Sodium 136 mmol/L (136-145)
== END 2023-07-17 02:49 | disposition home or self-care (01) ==
LOC: LBO 02:48
PROVIDERS: PCP Family Medicine; Visit Provider Student in an Organized Health Care Education/Training Program
DX: M17.12 Unilateral primary osteoarthritis, left knee (principal); Z01.818 Encounter for other preprocedural examination
CPT/HCPCS: 36415; 80048; 85027

== ENCOUNTER 2023-08-06 08:05 | Day surgery (SDC) | payer MEDICAID, SELFPAY ==
--- NOTE | 2023-08-05 15:14 | NUR.NOTE ---
Pre-op reiview done with patient, H&P note stated uncontrolled BP at ortho office, per note was sent back to PCP office to maintain better control prior to surgery. Pt. placed on chlorthalidone. This RN stated that he hadn't been monitoring his BP since on new medication. Spoke with Bernie at ortho who also confirmed this. Also spoke with Giovani Trimble CRNA who stated anesthesia will assess AM of surgery if BP >180 systolically pt. will be postponed. Pt. instructed to take Amlodipine, Losartan, AND Chlorthalidone per anes. as well as pt. made aware if BP is out of safe parameters that he will be postponed Pt. AND stated understanding Nursing Note:
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
[2023-08-06] VITALS (11 sets, daily range): BP systolic 86–157; BP diastolic 46–80; PULSE 69–86; RESP 12–22; TEMP 36.6–37.1; O2SAT 94–98; BMI 36.3
--- NOTE | 2023-08-06 08:25 | PDOC.DSDIS_ITS ---
Date of service: 08/06/23 Time of Service: 08:25 Discharge Plan Disposition Patient Disposition: Home Condition: Good Discharge Details Reason For Visit: L TKR Attending Provider: Denzel Boyd Primary Care Provider: Young Caban Home Meds and New Rx's Prescriptions: New acetaminophen 500 mg tablet 1,000 mg PO TID Qty: 90 3RF aspirin 81 mg tablet,delayed release (DR/EC) 81 mg PO BID Qty: 60 0RF celecoxib 200 mg capsule 200 mg PO BID Qty: 60 0RF dexamethasone 4 mg tablet 4 mg PO DAILY Qty: 2 0RF gabapentin 300 mg capsule 300 mg PO QHS Qty: 14 0RF oxycodone 5 mg tablet 5 mg PO Q4H MDD 6 tabs PRN (Reason: pain) Qty: 20 0RF pantoprazole 40 mg tablet,delayed release (DR/EC) 40 mg PO DAILY Qty: 30 0RF Continued losartan 100 mg tablet 100 mg PO DAILY Qty: 90 3RF amlodipine 5 mg tablet 5 mg PO DAILY Qty: 90 4RF chlorthalidone 25 mg tablet 25 mg PO DAILY Qty: 30 0RF sildenafil [Viagra] 25 mg tablet 25 - 100 mg PO DAILY PRN (Reason: sexual activity) Qty: 90 3RF Rx Instructions: administer 30 minutes to 4 hours before activity dextroamphetamine sulfate 5 mg capsule, extended release 10 mg PO DAILY MDD 2 caps Qty: 56 0RF Hold Instructions: Home Medication placed on hold at Doctor's office Rx Instructions: take with a 30 mg to equal 40 mg/day dextroamphetamine-amphetamine [Adderall XR] 30 mg capsule,extended release 24hr 30 mg PO QAM MDD 40 mg Qty: 28 0RF Hold Instructions: Home Medication placed on hold at Doctor's office Rx Instructions: take with a 10 mg cap to equal 40 mg/day dextroamphetamine-amphetamine 25 mg capsule,extended release 24hr 25 mg PO DAILY MDD 1 Qty: 28 0RF Hold Instructions: shortage albuterol sulfate [ProAir HFA] 90 mcg/actuation HFA aerosol inhaler 2 puff Inhalation Q4H PRN Qty: 1 5RF dextroamphetamine-amphetamine 15 mg capsule,extended release 24hr 45 mg PO DAILY MDD 3 Qty: 84 0RF Hold Instructions: per pt Discontinued aspirin [Aspir-81] 81 mg tablet,delayed release (DR/EC) 81 mg PO DAILY meloxicam 15 mg tablet 15 mg PO DAILY Qty: 30 2RF ibuprofen 600 mg tablet 600 mg PO TID PRN (Reason: pain) Qty: 90 4RF Discharge Instructions Additional Instructions: Total Knee Discharge Instructions Activity: The most important activity is to walk and to work on gentle motion (both flexion and extension). You should try to take short walks a few times a day. It is important that when resting you work on keeping the knee straight. Avoid putting a pillow behind the knee as this will encourage flexion. Work on range of motion exercises as provided by Physical Therapy. - Start outpatient physical therapy within 2 weeks. - You should wear the SONY hose on both legs for 2 weeks. You may remove these at night. You may also use any compression sock in place of the SONY hose. - Utilize [employer] to review exercises, see videos on exercises and obtain basic information pertaining to your surgery and your recovery. Dressing: Remove the Jaguar wrap by 2 days after your surgery and put on the SONY stocking given to you from the hospital. Keep the surgical dressing (underneath the JAGUAR wrap) in place for at least one week. After the first week it may be removed and replaced with light gauze and tape or nothing. The wound and dressing may get wet after 3 days but avoid soaking the dressing or otherwise it will need to be changed. Many people prefer covering the dressing with cling wrap (saran wrap) to minimize it from getting soaked. If it gets wet, just pat dry. If it starts to peel off then it will need to be changed. Medications: - You should take Tylenol and anti-inflammatory Celebrex as your primary pain control medications. If the Celebrex is too expensive or not covered, please call the office for another alternative (Advil/Ibuprofen or Naproxen/Aleve) - You have been prescribed a stronger pain medication Oxycodone for breakthrough pain, take as needed as prescribed. - You have also been prescribed a stomach acid reduction agent Pantoprozole to help reduce stomach acid and reflux. - You have been prescribed Gabapentin to take at night for restlessness and nerve pain. - You will be taking Aspirin 81mg twice a day for DVT prevention unless instructed otherwise. - You have also been prescribed Decadron to take to control post-operative nausea and pain. You will start this tomorrow. - If you have constipation you should take Colace or Miralax (both [id number]). It takes most people 3-4 days to have a bowel movement. Follow-up: 2 weeks If you have any acute concerns or questions, please do not hesitate to contact the office at [phone]. You may contact Dr. Boyd with any questions after hours through the hospital at [phone] or on his cell phone at [phone]. Stand Alone Forms: Anesthesia Discharge Inst[facility] Ludwin Silveira (U) Referrals: Denzel Boyd MD [ [facility] ST[facility]FF [facility]YSICIAN] - Equipment/Supplies: Walker Activity:: Activity as Tolerated Shower/Bathe:: 72 hours Diet:: As Tolerated Discharge Orders Discharge Orders: Discharge Order (Routine); Ordered 08/06/23 Ordered By: Hoang Yang DS: Diagnosis Discharge Diagnosis (1) Arthritis of knee, left: Status: Acute
[2023-08-06] MEDS: Celecoxib 200 MG CAP 400 MG PO (08:53)
[2023-08-06] MEDS: Lactated Ringers 1,000 ML 80 ML IV (08:53)
[2023-08-06] MEDS: Acetaminophen 500 MG TAB 1000 MG PO (08:53)
[2023-08-06] MEDS: Gabapentin 300 MG CAP PO (08:53)
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
--- NOTE | 2023-08-06 09:27 | W.ANESNERVE ---
Nerve Block Single Injection Procedure Date and Time Date Performed: 08/06/23 Procedure Start: 09:20 Location Where Procedure Performed Procedure Location: Day Surgery Unit Reason Performed: Postoperative Analgesia Requesting Provider: Denzel Boyd Timeout Performed Timeout Performed: Yes Monitoring Used ECG, Blood Pressure and SpO2 Sterility Sterility: Hand Hygiene, Surgical Cap, Surgical Mask, Sterile Gloves and Chlorhexidine Sedation Given During Procedure Sedation Given (Indicate Dose Given): Versed IV Dose:: 2 mg Patient Mental Status Patient Mental Status: Sedate with meaningful communication Nerve Block 1st Nerve Block: Laterality: Left Block Type: Adductor Canal Ultrasound Image Saved?: Yes Needle / Catheter Used: 120mm SonoPlex II Local Anesthetic Bolus (Indicate Dose Given): Lidocaine used for local infiltration of skin and Bupivacaine 0.25% Dose:: 7 mL Additives (Indicate Dose Given): None Ultrasound: Sterile probe cover and gel used Nerve Stimulator: Supplement to Ultrasound use and No twitch or parasthesia noted < 0.5 mA Paresthesia: None Procedure Tolerated: No Complications Procedure Outcome: Successful Performed By: Royer Khan 2nd Nerve Block: Laterality: Left Block Type: Other (anterior femoral cutaneous) Ultrasound Image Saved?: No Needle / Catheter Used: 120mm SonoPlex II Local Anesthetic Bolus (Indicate Dose Given): Bupivacaine 0.25% Dose:: 5 mL Additives (Indicate Dose Given): None Ultrasound: Sterile probe cover and gel used Nerve Stimulator: Supplement to Ultrasound use and No twitch or parasthesia noted < 0.5 mA Paresthesia: None Procedure Tolerated: No Complications Procedure Outcome: Successful Performed By: Royer Khan
[2023-08-06] MEDS: ceFAZolin 2 GM/50 ML BAG IVPB (09:32)
--- NOTE | 2023-08-06 10:57 | ROE_ITS ---
Date of service: 08/06/23 Time of Service: 09:30 Operative Note Operative Note DATE OF PROCEDURE: 08/06/23 PRE-OP DIAGNOSIS: Left Knee Osteoarthritis POST-OP DIAGNOSIS: same PROCEDURE: Left Total Knee Replacement SURGEON: Denzel Boyd BLIND [employer]AT [employer]APLING MACHINE OPERATOR: Wojciech Yang ANESTHESIA TYPE: Spinal Refer to Anesthesia Record ESTIMATED BLOOD LOSS: 100 PATHOLOGY: none sent TOURNIQUET TIME: 0 COMPLICATIONS: None Patient was transported to: PACU Patient's condition: stable Implants: 1. Depuy Attune Cementless Cruciate Retaining Femoral Component, Size 8 2. Depuy Attune Cementless Fixed Bearing Tibial Component, Size 7 3. Depuy Attune 8x7 CR/FB Poly 4. Depuy Attune Patellar Component, Size 38 Indications: I have seen Venu in clinic for symptoms of knee arthritis, confirmed with radiographic findings. He has exhausted nonoperative methods and was having si gnificant limitations in daily function and desired better function and less pain. I discussed the technical details of a knee replacement. I explained the risks of the procedure to include, but not limited to, bleeding, infection, pain, stiffness, fracture, damage to nerves and vessels, damage to muscles and tendons, loosening, need for repeat procedure, blood clot and cardiopulmonary demise. Despite these risks, Venu elected to proceed. Findings: There was notable chondromalacia of the medial femur as well as the central patella. Procedure Description: Venu was greeted in the preoperative holding area where the correct side was identified and marked. The consent was reviewed with the patient and signed. The history and physical was updated. All questions were answered. Preoperative medications were administered: Acetaminophen 1000mg, Celebrex 400mg, and Gabapentin 300mg. An adductor canal block was then administered by the anesthesia team in the PACU. Venu was taken back to the operating room. A spinal anesthestic was then administered. The patient was placed into the supine position on the operating room table. A nonsterile tourniquet was placed high onto the leg but only used for cementing. Posts were placed for positioning during the procedure. All bony prominences were well padded. Prophylactic antibiotics in the form of Cefazolin were administered. 1g of Tranxemic Acid was given intravenously within 30 minutes of incision. The left leg was then prepped with Chloraprep and draped in a standard fashion with impervious stockinette. A second prep with Chloraprep was performed prior to application of Iodine impregnated skin protection. A timeout to confirm correct identity, side and site, procedure, allergies, anesthesia, and medical concerns was performed. With the knee in some flexion, a midline incision was made overlying the knee. Full thickness skin flaps were raised once the extensor mechanism was encountered. These were raised medially and laterally. Any bleeding was controlled with electrocautery. Once the extensor mechanism was fully exposed, a medial parapatellar arthrotomy was performed in a flexed position. All bleeding from the arthrotomy and the geniculate arteries was coagulated. A medial subperiosteal peel was performed with electrocautery to the midcoronal plane. The fat pad was removed while keeping the patellar tendon protected. The anterior distal femur synovium was removed for later visualization. The ACL and PCL were resected and the anterior horn of the lateral meniscus was transected. The knee was then flexed with the patella everted. Large osteophytes from the tibia were removed. Large oste ophytes from the femur were removed. Using a step drill, and based on preoperative templating, the femoral canal was entered. This was done with a step drill without any difficulty. The intramedu llary distal femoral cut guide was inserted, set to a 6 degree valgus cut and 9mm cut thickness. The distal femoral cut guide was then held in position and pinned. With the soft tissues protected, the distal cut was performed. This was passed over a few times to ensure a planar cut. I then turned attention to the tibia. The extramedullary guide was placed onto the leg. The distal aspect was slid medial to adjust for position of center of ankle and stay in line with shaft of the tibia. Approximately 3-5 degrees of posterior slope was kept in the proximal cutting guide. The center of the guide was aligned with the PCL. The stylus was used to assess cut thickness. The medial side, most involved side, was set for a 5mm cut. This was then held in position and pinned into place with 2 additional pins and a cross pin for stability. The medial and lateral collateral ligaments were protected and the cut was performed. With this completed, it was assessed and noted to be of appropriate dimensions. The guide was removed. A spacer block was inserted and the knee was brought into extension. The 6mm spacer block provided full extension, without hyperextension and with stability of both the medial and lateral collateral ligaments was assessed. The pins from the femur and the tibia were then removed. The distal femur was then sized. The anterior stylus was placed onto the l ateral ridge of the anterior femur. This indicated a size 8 femur. The external rotation of the guide was adjusted to 3 degrees to match the epicondylar axis, perpendicular to Karri?s line. The 4-in-1 cutting guide was the placed. The posterior medial femur cut was evaluated and appeared of good thickness. The spacer block was inserted underneath the cutting guide and stability was confirmed in 90 degrees of flexion. An kody wing was used to confirm appropriate position of the anterior cut to avoid notching. This cutting guide was ensured to be flush on the cut surface and then pinned into place with headed pins. While protecting the soft tissues, quad tendon, and collateral ligaments, the anterior and posterior cuts were performed with a saw. The central two pins were removed and the posterior and anterior chamfers were cut next. The notch-cutting guide was placed. This was pinned to lateralize the femoral component as much as possible while keeping it flush on the cut surface. This was then pinned into position. A reciprocating saw was used to make the notch cut. A rasp smoothed the cut surfaces. The medial and lateral menisci were removed. A trial femoral component was then inserted, impacted down to the cut surfaces, and the lug holes were drilled. A provisional trial tibial component was placed and the knee was brought through range of motion. The polyethylene was trialed until there was good flexion and extension with excellent stability to the medial and lateral collaterals. The patella was tracking without thumbs. A size 7mm polyethylene component provided the best range of motion and stability with less than 2mm gapping with medial and lateral stress and full extension without significant hyperextension. The tibial cut surface was fully exposed. The tibia was then sized as a 7. The tibia had been previously marked during trialing to correspond to the center of the tibial component to help with rotation. The trial was aligned to this wojciech, approximately rotated to the medial 1/3rd of the tibial tubercle. The trial was pinned into place. The tibia was prepared with a reamer and a keel punch and lug holes. The knee was then brought into extension and the patella was measured as 27mm. Using the patellar clamp and cut guide, this was resected to a flat surface with at least 13mm of thickness remaining. The size 38 patella fit the best. This was oriented and then clamped into position. The lugs were drilled. The trial components were removed. The final components were opened on the back table. The periosteal and capsular tissues, especially posteriorly, around the knee were then systematically injected with a periarticular cocktail consisting of 246mg of Ropivacaine, 0.5mg of Epinephrine, 0.08mg of Clonidine, and 30mg of Ketorolac, diluted to 100cc. On the back table, with the implants opened, the cement was mixed. One batch of high viscosity cement was prepared with vacuum assistance. After the cement was ready a small amount was placed on the cut surface of the patella and the patellar button was clamped into position and held. While the cement was hardening, the cementless knee components were placed. Starting with the tibial component, the tibia was subluxed anteriorly and the lug holes of the component were lined up. The tibia was then impacted with an impactor and mallet until the tibial component was in contact with the tibia. The final polyethylene component was inserted. Then, the femoral component was inserted. The lug holes were aligned and the component was impacted into position. The knee was irrigated with Irrisept Chlorhexadine solution. This was allowed to sit in the knee for 3 minutes and then it was irrigated out with saline. After the cement had finally cured, approximately 15min, the clamp was removed from the patella and the knee was taken through range of motion. The patella was tracking with a no-thumbs technique. The capsule was then reapproximated with a No. 1 Vicryl at multiple locations. The capsule was finally closed with a No. 2 Stratafix, barbed suture. The second dosing of 1g TXA was started. Deep tissues were then reapproximated with 0 Vicryl and 2-0 Vicryl. The skin was closed with a running 3-0 Monocryl in a subcuticular fashion. This was reinforced with skin glue. A Mepilex silver dressing was applied along with a [id number] ALEXIS wrap. A CryoCuff was applied. Venu was transferred to the hospital bed without difficulty an suffering no apparent complication. Venu has a good prognosis. Physical therapy will start today and without restrictions, weight-bearing as tolerated. Aspirin 81mg BID will be used for DVT prophylaxis.
--- NOTE | 2023-08-06 11:51 | W.ANESPOSTOP ---
Postoperative Evaluation Date, Time and Location Date Performed: 08/06/23 Time Performed: 11:51 Patient Location: PACU Vital Signs Most Recent Imported Vital Signs: Most Recent Vital Signs Temp Pulse Resp BP Pulse Ox 36.8 C 79 21 108/46 L 95 08/06/23 11:34 08/06/23 11:34 08/06/23 11:34 08/06/23 11:34 08/06/23 11:34 Pain Score Most Recent Pain Score: Most Recent Pain Score Pain Level 0 08/06/23 11:34 Assessment Mental Status: Awake (Alert & Oriented to Patient Baseline) Airway and Respiratory Function: Patent airway with normal (patient baseline) respiratory exam Cardiovascular Function: Hemodynamically Stable Hydration Status: Adequately Hydrated Nausea & Vomiting: No Nausea or Vomiting Pain: Other (spinal still in effect. ) Peripheral Nerve Block: Regional nerve block not resolved at time of post operative discharge
[2023-08-06] MEDS: oxyCODONE 5 MG TAB PO (13:07)
--- NOTE | 2023-08-06 13:18 | IN_ITS ---
PT Notes Visit Reasons: L TKR Physical Therapy Day Surgery Initial Evaluation Date: 08/06/2023 Referring Doctor: JUANA Lange PT Orders: PT CONSULT: S/P Ortho surgery Precautions: WBAT on left LE with AD. Patient Profile/Admitting Diagnosis: Venu is a 52-year-old male with degenerative joint disease of the left knee and status post left total knee arthroplasty on postoperative day 0. PMHX: Medical History (Updated 07/01/23 @ 13:02 by Abilio Weaver MD) Tear of medial meniscus of left knee Internal derangement of left knee Steroid injection: 04/07/2023 Tendonitis of long head of biceps brachii of right shoulder Rotator cuff tear, right Impingement syndrome of right shoulder Bursitis of right shoulder Surgical History Nasal septoplasty RECONSTRUCTION OF NASAL PASSAGES AND NOSE @ [facility] Social History/Home Situation: Lives with in a private home with 3 steps to enter with a rail on one side and a wall that he can push onto for support. Independent with all aspects of ADLs prior to surgery almost although has had increasing difficulty with mobility performance due to left knee OA. Equipment Owned/DME: None Subjective: 5/10 pain in the left knee at rest, 2-3/10 with weightbearing movement. Denies headache, chest pain, and lightheadedness throughout session. Objective: General Observation: Seated on chair. ALEXIS wraps to left LE. Cryocuff to left knee. Mental Status: A and O x 4 Pain: As above ROM: Right Lower Extremity: Hip flexion WFL. Hip abduction WFL. Knee flexion WFL. Ankle dorsiflexion WFL. Ankle plantarflexion WFL. Left Lower Extremity: Hip flexion WFL. Hip abduction WFL. Knee flexion 10 degrees to 110 degrees. Knee extension -10 degrees. Ankle dorsiflexion WFL. Ankle plantarflexion WFL. Strength: Right Lower Extremity: Hip flexors 5/5. Hip abductors 5/5. Knee flexors 5/5. Knee extensors 5/5. Ankle dorsiflexors 5/5. Ankle plantarflexors 5/5. Left Lower Extremity:Hip flexors 5/5. Hip abductors 5/5. Knee flexors 3-/5. Knee extensors 3-/5. Ankle dorsiflexors 5/5. Ankle plantarflexors 5/5. Sensation: Intact distally as to pain and light pressure in BLE Bed Mobility/Transfers: Minimal cueing provided for use of B hands as needed for support, movement sequence, Ad management, and and posture to reduce fall risk and minimize pain report. Sit to stand contact-guard assist Stand to sit standby assist Bed to chair standby assist Gait: Facilitated safe and correct level surface ambulation covering a distance of 150 feet using front wheeled walker with step through reciprocal heel-toe gait pattern with standby assist provided and minimal verbal cues provided for increased knee flexion on the left during preswing and swing phase, AD management, safe directional change, and posture to minimize fall risk and reduce pain report. Stairs: Guided patient with safe and correct negotiation of 6 x 4 inch steps and 4 x 6 inch steps while holding onto bilateral rails with step to gait pattern requiring only standby assist and minimal verbal cueing for increased left knee flexion during each ascent, weight shifting, and overall safety to reduce fall risk and minimize pain report. Balance: Static Sitting: Normal Dynamic Sitting: Normal Static Standing: Fair Dynamic Standing: Fair Special Tests: Mobility Limitations Standardized Measure [facility] AM-PAC 6 clicks Basic Mobility Inpatient Short Form: Raw Score: 24 CMS Score: 0% deficit Informed Consent/Education: Patient instructed in purpose of PT consult. Packet containing L exercise protocol has been given to patient. Education and training on initial set of exercises that can be done at home have been completed with patient. Trained patient with correct performance of exercises below to maximize motor control, joint flexibility, soft tissue extensibility of the [] knee musculature: Access Code: [email or web address] URL: [email or web address] Date: 08/06/2023 Prepared by: Milli Dewey Exercises - Supine Quad Set - 1 x daily - 7 x weekly - 1 sets - 10 reps - 5 hold - Supine Heel Slide - 1 x daily - 7 x weekly - 1 sets - 10 reps - 5 hold - Supine Ankle Pumps - 1 x daily - 7 x weekly - 1 sets - 10 reps - 5 hold - Small Range Straight Leg Raise - 1 x daily - 7 x weekly - 1 sets - 10 reps - 5 hold - Seated March - 1 x daily - 7 x weekly - 1 sets - 10 reps - 5 hold Assessment: Good quad activation on the left. Patient requires the use of a front wheeled walker for mobility ADL performance to maximize independence and reduce fall risk. Patient presents with clinical signs and symptoms consistent with current/admitting diagnoses that have resulted to mobility limitations, gait instability, generalized weakness, and impairment of motor control as demonstrated by the following impairment level findings: 1. Decreased strength to left knee major muscle groups 2. Impaired standing balance 3. Limitation of joint range of motion in left knee Impairments are contributing to the following functional limitations: 1. Inability to safely ambulate without assistive device 2. Increase completion time for mobility ADL performance 3. Increased fall risk Patient is assessed as a 51391 moderate complexity based on the following: History: 52-year-old male with impairment level findings, functional limitations, and past medical history as indicated above Examination: Demonstrable impairment in strength, balance, and mobility level with underlying impairments and functional limitations as documented above Presentation: Evolving Decision Makin moderate complexity Goals: N/A. PT evaluation and 1-2 treatment sessions only for functional mobility training using recommended AD and for HEP instruction. Plan of Care/Treatment Plan: N/A. PT evaluation and 1-2 treatment session only for functional mobility training using recommended AD and for HEP instruction. DISCHARGE RECOMMENDATIONS: Home when medically cleared by orthopedic surgeon. Recommend outpatient PT services in order to optimize functional mobility outcomes and facilitate return to independent community ambulation without an assistive device. TREATMENT CODE/TIME: 86355 x 29 minutes for 1 unit beginning at 13:18 PM. Thank you for the opportunity to participate in the care of this patient. Please sign an return this page within 30 days if you agree with the above POC. Thank you! Physician Signature Date [facility] Milli Dewey PT, DPT, CLT [facility] [place], [place]
== END 2023-08-06 08:06 | disposition home or self-care (01) ==
PROVIDERS: PCP Family Medicine; Visit Provider Student in an Organized Health Care Education/Training Program
PROC: (CPT 27447; principal; 2023-08-06 11:45)
DX: M17.12 Unilateral primary osteoarthritis, left knee (principal); I10 Essential (primary) hypertension; E66.01 Morbid (severe) obesity due to excess calories; E11.9 Type 2 diabetes mellitus without complications; G47.33 Obstructive sleep apnea (adult) (pediatric)
CPT/HCPCS: 27447; 76942; 97162; C1776; J0665; J0690; J1100; J2001; J2250; J2371; J2401; J2405; J2704

== ENCOUNTER 2023-08-21 13:38 | Outpatient (CLI) | payer MEDICAID, SELFPAY ==
--- NOTE | 2023-08-21 10:15 | DI.RAD_ITS ---
Exam(s) XR KNEE LT 1V XR STANDING ALIGNMENT EXAM: XR STANDING ALIGNMENT and XR knee LT 1 V CLINICAL HISTORY: 1ST POST OP L TKA. TECHNIQUE: 2D digital imaging was performed. Five images were obtained. COMPARISON: CR XR STANDING ALIGNMENT from 07/01/2023 CR XR KNEE LT 1V from 08/21/2023 FINDINGS: BONES: The hips are well maintained. The patient is now status post left total knee replacement. Th e orthopedic hardware appears in good position. No findings to suggest hardware failure are seen. T here is mild joint space narrowing and spurring in the medial joint compartment of the right knee. T he ankles are well maintained.There is no significant leg length discrepancy. SOFT TISSUE: Normal. IMPRESSION: 1. Status post left total knee replacement. 2. Mild degenerative changes in the right knee. DATA REPOSITORY: RADIATION DOSE DELIVERED:
== END 2023-08-21 13:39 | disposition home or self-care (01) ==
LOC: DIORS 13:39
PROVIDERS: PCP Family Medicine; Visit Provider Student in an Organized Health Care Education/Training Program
DX: Z96.652 Presence of left artificial knee joint (principal); Z47.1 Aftercare following joint replacement surgery
CPT/HCPCS: 73560; 77073

== ENCOUNTER 2024-02-16 04:24 | Emergency (ER) | payer MEDICAID, SELFPAY ==
[2024-02-16 04:26] VITALS: BP 181/100; PULSE 72; RESP 18; TEMP 37; O2SAT 97
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
[2024-02-16] MEDS: Acetaminophen 500 MG TAB 1000 MG PO (05:05)
[2024-02-16] MEDS: Losartan 50 MG TAB 100 MG PO (05:05)
[2024-02-16] MEDS: Cyclobenzaprine 10 MG TAB 5 MG PO (05:05)
[2024-02-16] MEDS: Ketorolac 15 MG/ML VIAL IM (05:05)
[2024-02-16 06:36] VITALS: BP 166/94; PULSE 88; O2SAT 99
[2024-02-16 06:52] VITALS: BP 166/94; PULSE 88; RESP 18; TEMP 37; O2SAT 99
== END 2024-02-16 06:39 | disposition home or self-care (01) ==
PROVIDERS: Emergency Provider Student in an Organized Health Care Education/Training Program; PCP Family Medicine
DX: M54.50 Low back pain, unspecified (principal)
CPT/HCPCS: 90472; 99284; 99283; J1885

== ENCOUNTER 2024-04-15 15:34 | Outpatient (REF) | payer MEDICAID, SELFPAY ==
--- NOTE | 2024-04-15 07:45 | NASALBX_PTH ---
PATIENT: Bryn Zapata LOC: [facility] U#:[id number] AGE/SX: 53/M ROOM: RE04/15/[address]: Wild Suarez MD : [id number] BED: DIS: 04/15/2024 SPEC #: [id number] RECD: 04/15/24 16:55 STATUS: JOSTIN REQ #: [id number] CHRISTIANA: 04/15/24 07:[address]: Wild Suarez DEPT: Surgical Specimen RECD BY: Brittany Rubin ENTERED: 04/15/24 16:55 SP TYPE: NASALBX OTHR DR: Young Caban MD Tissues: 1 - MUCOSA, NOS Procedures: IMMUNOPEROXIDASE STAIN SKIN LEVEL 4 Comments: [id number]
== END 2024-04-15 15:35 | disposition home or self-care (01) ==
LOC: LBN 15:34
PROVIDERS: PCP Family Medicine; Visit Provider Otolaryngology
DX: J34.89 Other specified disorders of nose and nasal sinuses (principal); D17.9 Benign lipomatous neoplasm, unspecified
CPT/HCPCS: 88305; 88361

== ENCOUNTER 2024-05-27 15:44 | Outpatient (REF) | payer MEDICAID, SELFPAY ==
[2024-05-27 22:23] LABS: HCT 43.9 % (40.0-50.0); MCH 28.8 pg (27.0-33.0); MCHC 34.2 % (32.0-36.0); MCV 84 fL (80-95); MPV 9.1 fL (8.0-11.0); Platelet Count 295 10^3/uL (130-400); RBC 5.21 10^6/uL (4.36-5.78); RDW 13.4 % (11.8-14.1); RDW-SD 41.6 fL; WBC 6.28 10^3/uL (4.4-10.8)
[2024-05-27 22:40] LABS: Hemoglobin A1C 5.9 % (<5.7)
[2024-05-27 23:31] LABS: ALT 24 U/L (16-63); AST 17 U/L (15-37); Albumin 4.2 g/dL (3.4-5.0); Alkaline Phosphatase 86 U/L (46-116); Anion Gap 15.4 mmol/L (3-11); BUN 23 mg/dL (7-18); Bilirubin, Total 0.82 mg/dL (0.2-1.0); CO2 21.6 mmol/L (21.0-32.0); CREATININE 1.2 mg/dL (0.70-1.30); Calcium 9.3 mg/dL (8.5-10.1); Calculated LDL 116 mg/dL (<100); Chloride 103 mmol/L (98-107); Cholesterol 200 mg/dL (<200); Estimated GFR 71.42 (mL/min/1.73m2); Glucose 125 mg/dL (74-106); HDL Cholesterol 64 mg/dL (40-60); Potassium 3.8 mmol/L (3.5-5.1); Sodium 140 mmol/L (136-145); TSH (W/Ref FT4) 1.61 uIU/mL (0.36-3.74); Total Protein 7.3 g/dL (6.4-8.2); Triglyceride 100 mg/dL (<150)
[2024-05-28 18:54] LABS: PSA, Screening 0.5 ng/mL (<=3.5)
== END 2024-05-27 15:45 | disposition home or self-care (01) ==
LOC: LBN 15:44
PROVIDERS: PCP Family Medicine; Visit Provider Nurse Practitioner Family
DX: Z00.00 Encounter for general adult medical examination without abnormal findings (principal); E11.9 Type 2 diabetes mellitus without complications; I10 Essential (primary) hypertension; F98.8 Other specified behavioral and emotional disorders with onset usually occurring in childhood and adolescence; I24.9 Acute ischemic heart disease, unspecified; J45.909 Unspecified asthma, uncomplicated; R63.4 Abnormal weight loss
CPT/HCPCS: 80053; 80061; 84153; 85027; 83036; 84443

== ENCOUNTER 2024-08-09 15:28 | Outpatient (CLI) | payer MEDICAID, SELFPAY ==
--- NOTE | 2024-08-09 15:00 | DI.RAD_ITS ---
Exam(s) XR KNEE LT 2V AP,LAT EXAM: XR KNEE LT 2V AP,LAT CLINICAL HISTORY: ANNUAL F/U L TKA. TECHNIQUE: 2D digital imaging was performed. Two images were obtained. AP and lateral views were ob tained. COMPARISON: CR XR STANDING ALIGNMENT from 08/21/2023 CR XR KNEE LT 1V from 08/21/2023 FINDINGS: BONES: There are stable post operative changes of a left total knee arthroplasty present. No fractur e or dislocation. JOINTS: The orthopedic hardware is in good position. No evidence of hardware loosening. SOFT TISSUE: Normal. IMPRESSION: Stable left total knee arthroplasty. DATA REPOSITORY: RADIATION DOSE DELIVERED:
== END 2024-08-09 15:29 | disposition home or self-care (01) ==
LOC: DIORS 15:29
PROVIDERS: PCP Family Medicine; Visit Provider Physician Assistant
DX: Z96.652 Presence of left artificial knee joint (principal); Z47.1 Aftercare following joint replacement surgery
CPT/HCPCS: 73560

== ENCOUNTER 2025-02-01 07:51 | Emergency (ER) | payer MEDICAID, SELFPAY ==
[2025-02-01 07:52] VITALS: BP 155/84; PULSE 86; RESP 15; TEMP 36.9; O2SAT 97
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
[2025-02-01 08:04] VITALS: RESP 16
[2025-02-01] MEDS: Ondansetron O.D.T. 4 MG TABEF PO (08:45)
[2025-02-01 08:49] VITALS: BP 140/90; PULSE 86; RESP 14; O2SAT 96
== END 2025-02-01 08:50 | disposition home or self-care (01) ==
PROVIDERS: Emergency Provider Emergency Medicine; PCP Family Medicine
DX: R11.0 Nausea (principal)
CPT/HCPCS: 99283 ×2